=== PATIENT | female | born 1970 | race Caucasian/White ===

== ENCOUNTER 2016-10-26 12:49 | Emergency (ER) | payer OTHER ==
[2016-10-26] MEDS ORDERED: DIPHENHYDRAMINE HCL 25 MG CAPSULE PO ONE (13:32)
[2016-10-26] MEDS ORDERED: METHYLPREDNISOLONE INJ 125 MG/2 ML SDV IM ONE (13:32)
[2016-10-26] MEDS ORDERED: FAMOTIDINE 20 MG TABLET PO ONE (13:32)
--- NOTE | 2016-10-26 13:39 | ER Document Report ---
HPI - HPI Pain Level: 3 Notes: Patient is a 45-year-old female presents the ED complaining of a wasp sting to her right fourth distal digit. Patient states that she has not had any severe allergic reactions to wasp stings but does have a family history of allergies to bee and wasp stings. Patient states that the sting occurred just prior to arrival. Patient did take 25 mg and Benadryl just prior to arrival. She has not noticed any swelling proximally from her finger. She is still eating and drink without any problems. She has not noticed any headache, changes in her vision, dizziness, swelling of the lip/tongue/throat, cough, wheeze, shortness of breath, trouble breathing/trouble swallowing, chest pain, syncope, palpitations, abdominal pain, nausea/vomiting/diarrhea, purulent discharge. Patient denies any smoking or illicit drug use. She does have allergies to macrolides and doxycycline. Patient has past medical history significant for hypertension, hypercholesterolemia, anxiety, diabetes (p.o. meds), chronic back pain, and seasonal allergies. Denies any recent travel, recent illness, or sick contacts. - ROS Notes: REVIEW OF SYSTEMS: CONSTITUTIONAL : Denies fever, chills, or sweats. Denies recent illness. EENT: Denies eye, ear, throat, or mouth pain or symptoms. Denies nasal or sinus congestion or discharge. Denies throat, tongue, or mouth swelling or difficulty swallowing. CARDIOVASCULAR: Denies chest pain. Denies palpitations or racing or irregular heart beat. Denies ankle edema. RESPIRATORY: Denies cough, cold, or chest congestion. Denies shortness of breath, difficulty breathing, or wheezing. GASTROINTESTINAL: Denies abdominal pain or distention. Denies nausea, vomiting , or diarrhea. Denies blood in vomitus, stools, or per rectum. Denies black, tarry stools. Denies constipation. GENITOURINARY: Denies difficulty urinating, painful urination, burning, frequency, blood in urine, or discharge. MUSCULOSKELETAL: see hpi SKIN: see hpi HEMATOLOGIC : Denies easy bruising or bleeding. LYMPHATIC: Denies swollen, enlarged glands. NEUROLOGICAL: Denies confusion or altered mental status. Denies passing out or loss of consciousness. Denies dizziness or lightheadedness. Denies headache. Denies weakness or paralysis or loss of use of either side. Denies problems with gait or speech. Denies sensory loss, numbness, or tingling. ALL OTHER SYSTEMS REVIEWED AND NEGATIVE. Dictation was performed using [employer] voice recognition software - CARDIOVASCULAR Cardiovascular: DENIES: Chest pain - tight since stung - REPRODUCTIVE Reproductive: DENIES: : - DERM Skin Color: Normal Past Medical History - Social History Smoking Status: Never Smoker Chew tobacco use (# tins/day): No Frequency of alcohol use: Occasional Drug Abuse: None Family History: Reviewed & Not Pertinent Patient has suicidal ideation: No Patient has homicidal ideation: No - Past Medical History Cardiac Medical History: Reports: Hx Heart Attack - 2010, Hx Hypercholesterolemia, Hx Hypertension - on meds Pulmonary Medical History: Reports: Hx Asthma - none for 2 mo, Hx Bronchitis - Hx bronchitis x3 times, Hx Pneumonia Neurological Medical History: Reports: Hx Migraine Endocrine Medical History: Reports: Hx Diabetes Mellitus Type 2, Hx Hypothyroidism Renal/ Medical History: Reports: Hx Kidney Stones. Denies: Hx Peritoneal Dialysis GI Medical History: Reports: Hx Gastroesophageal Reflux Disease, Hx Ulcer Musculoskeltal Medical History: Reports Hx Arthritis, Reports Hx Musculoskeletal Trauma Skin Medical History: Reports Hx Eczema Psychiatric Medical History: Reports: Hx Anxiety - panic attacks Past Surgical History: Reports: Hx Appendectomy, Hx Cardiac Catheterization, Hx Hysterectomy, Hx Orthopedic Surgery - right hip with hardware, Hx Rectal Surgery - Hemmorhoids, Hx Tonsillectomy, Hx Tubal Ligation - Immunizations Immunizations up to date: Yes Hx Diphtheria, Pertussis, Tetanus Vaccination: Yes Hx Pneumococcal Vaccination: 04/12/07 Vertical Provider Document - CONSTITUTIONAL Agree With Documented VS: Yes Notes: PHYSICAL EXAMINATION: GENERAL: Well-appearing, well-nourished and in no acute distress. HEAD: Atraumatic, normocephalic. EYES: Pupils equal round and reactive to light, extraocular movements intact, sclera anicteric, conjunctiva are normal. ENT: EAC clear b/l. TM's intact b/l without erythema, fluid, or perforation. Nares patent and without discharge. oropharynx clear without exudates. No tonsilar hypertrophy or erythema. Moist mucous membranes. No sinus tenderness. No angioedema NECK: Normal range of motion, supple without lymphadenopathy. No rigidity LUNGS: Breath sounds clear to auscultation bilaterally and equal. No wheezes rales or rhonchi. HEART: Regular rate and rhythm without murmurs, rubs, gallops. Musculoskeletal: Rt 4th digit: FROM to passive/active. Strength 5+/5. + mild erythema/inflammation. No stinger noted (credit card swiped at sting site). N/ V intact distal. No prox erythema, cellulitis, abscess, d.ischarge, or lymphangitis/prox lymphadenopathy. + mild tenderness at sting site. Extremities: No cyanosis, clubbing, or edema b/l. Peripheral pulses 2+. Capillary refill less than 3 seconds. NEUROLOGICAL: Normal sensory, motor exams PSYCH: Normal mood, normal affect. SKIN: Warm, Dry, normal turgor, no rashes or lesions noted.--See MSK exam as well. - INFECTION CONTROL TRAVEL OUTSIDE OF THE [place] IN LAST 30 DAYS: No - RESPIRATORY O2 Sat by Pulse Oximetry: 97 Course - Re-evaluation Re-evalutation: 10/26/16 14:24 Patient is an afebrile, well-hydrated, 45-year-old female sent to the ED status post wasp sting to the fourth right distal posterior digit. Vitals are stable. PE otherwise unremarkable. Low suspicion for any septic joint, sepsis, fracture, or systemic illness. Patient only took 25 mg of Benadryl just prior to arrival. Another 25 mg Benadryl p.o. given today along with Pepcid 20 mg p.o. and Solu-Medrol 125 mg IM. Pt noted improvement in her symptoms after 1hr observation. Pt states she is ready to go home. Pt to monitor for any acute changes in health and any angioedema, etc. Pt to return if so. Conservative measures otherwise for symptoms. Recheck with your PCM in 2-3 days. Return to ED with any worsening/concerning symptoms otherwise as reviewed in discharge. Patient is in agreement. - Vital Signs Vital signs: Temp Pulse Resp BP Pulse Ox 98.1 F 77 16 111/57 L 97 10/26/16 12:54 10/26/16 12:54 10/26/16 12:54 10/26/16 12:54 10/26/16 12:54 Discharge - Discharge Clinical Impression: Wasp sting Qualifiers: Encounter type: initial encounter Injury intent: accidental or unintentional Qualified Code(s): T63.461A - Toxic effect of venom of wasps, accidental ( unintentional), initial encounter Condition: Stable Disposition: HOME, SELF-CARE Instructions: Insect Sting ([facility]), Swollen Insect Bite or Sting ([facility]), Use of Diphenhydramine, Ice & Elevation ([facility]) Additional Instructions: Rest, Ice, Compression, Elevation Take benadryl/pepcid as directed May use topical benadryl/cortisone cream as well as needed Tylenol/ibuprofen as needed Light stretches daily Strength exercises as able F/u with your PCP in 2-3 days for a recheck Consider consult(s) with Orthopedics for ongoing/worsening symptoms Return to the ED with any worsening symptoms and/or development of fever, swelling of face/lips/tongue/throat, trouble swallowing, headache, chest pain, palpitations, syncope, shortness of breath, trouble breathing, abdominal pain, n /v/d, muscle weakness/paralysis, numbness/tingling, or other worsening symptoms that are concerning to you. Referrals: WALI SQUIRES DO [Primary Care Provider] - Follow up in 3-5 days
[2016-10-26 15:03] VITALS: BP 141/82
== END 2016-10-26 14:50 | disposition home or self-care (01) ==
LOC: ER 12:49
DX: T63.461A Toxic effect of venom of wasps, accidental (unintentional), initial encounter (principal); I10 Essential (primary) hypertension; E11.9 Type 2 diabetes mellitus without complications; E03.9 Hypothyroidism, unspecified; K21.9 Gastro-esophageal reflux disease without esophagitis; E78.00 Pure hypercholesterolemia, unspecified; Z87.442 Personal history of urinary calculi; I25.2 Old myocardial infarction; Z90.710 Acquired absence of both cervix and uterus; Z84.89 Family history of other specified conditions
CPT/HCPCS: 99281; 96372; J2930

== ENCOUNTER → 2016-11-01 | Outpatient (CLI) | payer OTHER ==
--- NOTE | 2016-11-01 09:04 | RADIOLOGY REPORT (SQ) ---
EXAM DESCRIPTION: CT ABD/PELVIS COMBO COMPLETED DATE/TIME: 11/01/2016 8:44 am REASON FOR STUDY: GROSS HEMATURIA R31.0 GROSS HEMATURIA COMPARISON: None. TECHNIQUE: CT scan of the abdomen and pelvis performed with and without intravenous contrast, and wi thout oral contrast. Contrasted imaging performed helical scanning technique and dynamic intravenous contrast injection. Images reviewed with lung, soft tissue, and bone windows. Reconstructed coronal a nd sagittal MPR images reviewed. Delayed images for evaluation of the urinary system also acquired. A ll images stored on PACS. All CT scanners at this facility use dose modulation, iterative reconstruction, and/or weight based d osing when appropriate to reduce radiation dose to as low as reasonably achievable (ALARA). [facility]: Dose Right [facility]: CareDose [facility]: Dose Right [facility]: Teradose 4D [facility]: Houzz CONTRAST TYPE AND DOSE: contrast/concentration: Isovue 370.00 mg/ml; Total Contrast Delivered: 76.0 ml; Total Saline Delivered: 67.0 ml RENAL FUNCTION: Creatinine 0.6 RADIATION DOSE: Up-to-date CT equipment and radiation dose reduction techniques were employed. CTDIv ol: 9.0 - 9.2 mGy. DLP: 1417 mGy-cm. . LIMITATIONS: None. FINDINGS: NON-CONTRASTED IMAGING: There are solitary tiny bilateral renal calculi. No ureteric calc tunde are identified. POST-CONTRASTED IMAGING: LOWER CHEST: No significant findings. No nodules or infiltrates. LIVER: Normal size. There is mild fatty infiltration of the liver. Couple small hepatic cysts are i dentified in the medial segment of the left lobe of the liver. No dilated ducts. SPLEEN: Normal size. No focal lesions. PANCREAS: No masses. No significant calcifications. No adjacent inflammation or peripancreatic fluid collections. Pancreatic duct not dilated. GALLBLADDER: No identified stones by CT criteria. No inflammatory changes to suggest cholecystitis. ADRENAL GLANDS: No significant masses or asymmetry. RIGHT KIDNEY AND URETER: No solid masses. No significant calcifications. No hydronephrosis or hyd roureter. LEFT KIDNEY AND URETER: No solid masses. No significant calcifications. No hydronephrosis or hydr oureter. AORTA AND VESSELS: No aneurysm. No dissection. Renal arteries, SMA, celiac without stenosis. RETROPERITONEUM: No retroperitoneal adenopathy, hemorrhage or masses. BOWEL AND PERITONEAL CAVITY: No masses or inflammatory changes. No free fluid or peritoneal masses. APPENDIX: Status post appendectomy PELVIS: No mass. No free fluid. The bladder is not well evaluated due to its non distended state. No obvious masses are identified. ABDOMINAL WALL: No masses. No hernias. BONES: No significant or acute findings. OTHER: No other significant finding. IMPRESSION: Tiny solitary bilateral renal calculi are identified. No renal mass lesions are identif ied. The bladder is not well evaluated due to its non distended state. Other findings as noted abov e TECHNICAL DOCUMENTATION: JOB ID: [id number] Quality ID # [id number]: Final reports with documentation of one or more dose reduction techniques (e.g., Au tomated exposure control, adjustment of the mA and/or kV according to patient size, use of iterative reconstruction technique) 2010 [employer]- All Rights Reserved
== END ==
LOC: RAD 07:49
PROVIDERS: ATTEND Urology
DX: R31.0 Gross hematuria (principal)
CPT/HCPCS: 74178; 82565

== ENCOUNTER 2017-01-19 16:20 | Observation (INO) | payer OTHER ==
[2017-01-19] MEDS ORDERED: ASPIRIN 81 MG TABLET, CHEWABLE PO ONE (16:22)
[2017-01-19 16:54] LABS: ABSOLUTE EOSINOPHILS # (AUTO) 0.1 10^3/uL (0.0-0.6); ABSOLUTE LYMPHOCYTES (AUTO) 2.6 10^3/uL (0.5-4.7); ABSOLUTE MONOCYTES (AUTO) 0.8 10^3/uL (0.1-1.4); ABSOLUTE NEUT (AUTO) 5.7 10^3/uL (1.7-8.2); BASOPHILS % (AUTO) 0.5 % (0-2); EOSINOPHILS % (AUTO) 1.5 % (0-6); HEMOGLOBIN 14.3 g/dL (12.0-15.5); HGB HCT DIFFERENCE 0.9; MEAN CORPUSCULAR HEMOGLOBIN 29.7 pg (27.0-33.4); MEAN CORPUSCULAR HGB CONC 34.2 g/dL (32.0-36.0); MEAN CORPUSCULAR VOLUME 87 fl (80-97); MONOCYTES % (AUTO) 8.3 % (3-13); RED BLOOD COUNT 4.83 10^6/uL (3.72-5.28); RED CELL DISTRIBUTION WIDTH 13.4 % (11.5-14.0); SEGMENTED NEUTROPHILS % (AUTO) 61.7 % (42-78); WHITE BLOOD COUNT 9.3 10^3/uL (4.0-10.5)
--- NOTE | 2017-01-19 16:58 | RADIOLOGY REPORT (SQ) ---
EXAM DESCRIPTION: CHEST SINGLE VIEW COMPLETED DATE/TIME: 01/19/2017 4:46 pm REASON FOR STUDY: bed 4 cp COMPARISON: 08/24/2015 EXAM PARAMETERS: NUMBER OF VIEWS: One view. TECHNIQUE: Single frontal radiographic view of the chest acquired. RADIATION DOSE: NA LIMITATIONS: None. FINDINGS: LUNGS AND PLEURA: No opacities, masses or pneumothorax. No pleural effusion. MEDIASTINUM AND HILAR STRUCTURES: No masses. Contour normal. HEART AND VASCULAR STRUCTURES: Mild cardiomegaly. Normal vasculature. BONES: No acute findings. HARDWARE: None in the chest. OTHER: No other significant finding. IMPRESSION: Mild cardiomegaly without evidence of failure. TECHNICAL DOCUMENTATION: JOB ID: [id number]
[2017-01-19 17:10] LABS: ALANINE AMINOTRANSFERASE 30 U/L (9-52); ALBUMIN 4.3 g/dL (3.5-5.0); ALKALINE PHOSPHATASE 98 U/L (38-126); ANION GAP 11 (5-19); ASPARTATE AMINO TRANSFERASE 18 U/L (14-36); BILIRUBIN,DIRECT 0.3 mg/dL (0.0-0.4); BILIRUBIN,TOTAL 0.6 mg/dL (0.2-1.3); BLOOD UREA NITROGEN 18 mg/dL (7-20); CALCIUM 9.9 mg/dL (8.4-10.2); CARBON DIOXIDE 25 mmol/L (22-30); CHLORIDE 111 mmol/L (98-107); CREATINE KINASE 71 U/L (30-135); CREATININE RESULT 0.53 mg/dL (0.52-1.25); GLUCOSE 101 mg/dL (75-110); POTASSIUM 4.4 mmol/L (3.6-5.0); SODIUM 146.8 mmol/L (137-145); TOTAL PROTEIN 6.5 g/dL (6.3-8.2)
[2017-01-19 17:18] LABS: CREATINE KINASE MB 0.94 ng/mL (<4.55); TROPONIN I < 0.012 ng/mL
--- NOTE | 2017-01-19 18:05 | ER Document Report ---
ED Cardiac - General Chief Complaint: Chest Pain Stated Complaint: CHEST PAIN Time Seen by Provider: 01/19/17 16:42 Notes: Patient was at work when she got in an argument with some of her coworkers. States that she was yelled out. Has a history of anxiety as well as hypertension in heart problems. She began to notice that her face turned red and they begin to make fun of her. She was told to leave. She walked across the street [place] and it was extremely high. She is told the relocation counselor that she was having chest pain. They decided to transport her. Aspirin was given. Nitroglycerin was given. Patient states she had chest pain at that time but is now resolved. States that she knows this is from her anxiety and she has had this happen before. Last cardiac workup was done approximately 7 years ago. TRAVEL OUTSIDE OF THE [place] IN LAST 30 DAYS: No - HPI Patient complains to provider of: Chest pain - Related Data Allergies/Adverse Reactions: doxycycline [Doxycycline] Allergy (Severe, Verified 01/19/17 16:32) Anaphylaxis erythromycin base [Erythromycin Base] Allergy (Severe, Verified 01/19/17 16:32) Anaphylaxis latex [Latex] Allergy (Severe, Verified 01/19/17 16:32) Rash butorphanol tartrate [From Stadol] Allergy (Intermediate, Verified 01/19/17 16: 32) Difficulty breathing mycins Allergy (Severe, Uncoded 01/19/17 16:32) Anaphylaxis Past Medical History - Social History Smoking Status: Current Every Day Smoker Chew tobacco use (# tins/day): No Frequency of alcohol use: Occasional Drug Abuse: None Family History: Reviewed & Not Pertinent Patient has suicidal ideation: No Patient has homicidal ideation: No - Past Medical History Cardiac Medical History: Reports: Hx Heart Attack - 2010, Hx Hypercholesterolemia, Hx Hypertension - on meds Pulmonary Medical History: Reports: Hx Asthma - none for 2 mo, Hx Bronchitis - Hx bronchitis x3 times, Hx Pneumonia Neurological Medical History: Reports: Hx Migraine Endocrine Medical History: Reports: Hx Diabetes Mellitus Type 2, Hx Hypothyroidism Renal/ Medical History: Reports: Hx Kidney Stones. Denies: Hx Peritoneal Dialysis GI Medical History: Reports: Hx Gastroesophageal Reflux Disease, Hx Ulcer Musculoskeltal Medical History: Reports Hx Arthritis, Reports Hx Musculoskeletal Trauma Skin Medical History: Reports Hx Eczema Psychiatric Medical History: Reports: Hx Anxiety - panic attacks Past Surgical History: Reports: Hx Appendectomy, Hx Cardiac Catheterization, Hx Hysterectomy, Hx Orthopedic Surgery - right hip with hardware, Hx Rectal Surgery - Hemmorhoids, Hx Tonsillectomy, Hx Tubal Ligation - Immunizations Immunizations up to date: Yes Hx Diphtheria, Pertussis, Tetanus Vaccination: Yes Hx Pneumococcal Vaccination: 04/12/07 Review of Systems - Review of Systems Constitutional: No symptoms reported EENT: No symptoms reported Cardiovascular: No symptoms reported, Chest pain, Palpitations Respiratory: No symptoms reported Gastrointestinal: No symptoms reported Genitourinary: No symptoms reported Female Genitourinary: No symptoms reported Musculoskeletal: No symptoms reported Skin: No symptoms reported Hematologic/Lymphatic: No symptoms reported Neurological/Psychological: No symptoms reported, Anxiety Physical Exam - Vital signs Vitals: Temp 97.4 F 01/19/17 16:29 Interpretation: Normal - General General appearance: Appears well, Alert - HEENT Head: Normocephalic, Atraumatic Eyes: Normal Pupils: PERRL - Respiratory Respiratory status: No respiratory distress Chest status: Nontender Breath sounds: Normal Chest palpation: Normal - Cardiovascular Rhythm: Regular Heart sounds: Normal auscultation Murmur: No - Abdominal Inspection: Normal Distension: No distension Bowel sounds: Normal Tenderness: Nontender Organomegaly: No organomegaly - Back Back: Normal, Nontender - Extremities General upper extremity: Normal inspection, Nontender, Normal color, Normal ROM , Normal temperature General lower extremity: Normal inspection, Nontender, Normal color, Normal ROM , Normal temperature, Normal weight bearing. No: Blossom's sign - Neurological Neuro grossly intact: Yes Cognition: Normal Orientation: AAOx4 Velasquez Coma Scale Eye Opening: Spontaneous Velasquez Coma Scale Verbal: Oriented Leroy Coma Scale Motor: Obeys Commands Velasquez Coma Scale Total: 15 Speech: Normal Motor strength normal: LUE, RUE, LLE, RLE Sensory: Normal - Psychological Associated symptoms: Normal affect, Normal mood - Skin Skin Temperature: Warm Skin Moisture: Dry Skin Color: Normal Course - Re-evaluation Re-evalutation: 01/19/17 17:57 Appearing. No acute distress. I am concerned the patient is hypertensive diabetic with a history of heart problems. Will likely need to be admitted for stress test and repeat troponin. Will discuss with patient and if she is good with this plan will admit to the hospital. 01/19/17 18:05 We will admit to the hospital at this time. Consulted with Dr. Liang who has agreed to admit - Vital Signs Vital signs: Temp Pulse Resp BP Pulse Ox 97.4 F 99 01/19/17 16:29 01/19/17 16:34 - Laboratory Result Diagrams: 01/19/17 16:30 01/19/17 16:30 Laboratory results interpreted by me: 01/19/17 16:30 Sodium 146.8 H Chloride 111 H - Diagnostic Test Radiology reviewed: Reports reviewed Radiology results interpreted by me: 01/19/17 18:04 Chest x-ray unremarkable - EKG Interpretation by Me EKG shows normal: Sinus rhythm Rate: Normal Rhythm: NSR - Patient has T-wave inversions across precordial leads concerning for anterior infarct age indeterminate. Discharge - Discharge Clinical Impression: Acute chest pain Condition: Good Disposition: ADMITTED INPATIENT Admitting Provider: Hospitalist Referrals: SIERRA ALBARRAN MD [Primary Care Provider] - Follow up as needed
[2017-01-19] MEDS ORDERED: ENOXAPARIN SODIUM INJ 80 MG/0.8 ML DISP.SYRIN SUBCUT ONE (18:08)
[2017-01-19] MEDS ORDERED: ACETAMINOPHEN 325 MG TABLET PO PRN (18:34)
[2017-01-19] MEDS ORDERED: ONDANSETRON HCL INJ/PF 4 MG/2 ML SDV IV PRN (18:41)
[2017-01-19] MEDS ORDERED: INSULIN REG, HUMAN 100 UNIT/ML 3 ML VIAL (PYX) SUBCUT PRN (18:45)
[2017-01-19] MEDS ORDERED: GLUCAGON,HUMAN RECOMB 1 MG INJ IM PRN (18:45)
[2017-01-19] MEDS ORDERED: DEXTROSE 50%-WATER 25 GM/50 ML DISP.SYRIN IV PRN ×2 (18:45)
[2017-01-19] MEDS ORDERED: DEXTROSE 40% GEL 15 GM TUBE PO PRN ×2 (18:45)
--- NOTE | 2017-01-19 18:57 | PDOC H&P ---
History of Present Illness Admission Date/PCP: SIERRA ALBARRAN MD Patient complains of: chest pain History of Present Illness: OTILIO SELLERS is a 46 year old female, with hypertension and diabetes mellitus prior heart attack in the past since of the hospital with chest pain while having an argument with her employer. The patient was cooking and cutting ingredients when arguments started. Patient started crying and hyperventilating and eventually of a localized pain in the anterior chest wall mainly in the sternum. No radiation. No definite shortness of breath or diaphoresis. No nausea or vomiting. No chills fever or coughing. Patient went to the emergency room for evaluation. Because of the patient's history the patient was referred for observation and possible stress test in the morning. Past Medical History Past Medical History: Medication reconciliation pending verification from the patient's pharmacist. Cardiac Medical History: Reports: Myocardial Infarction - 2010, Hyperlipidema, Hypertension - on meds Pulmonary Medical History: Reports: Asthma - none for 2 mo, Bronchitis - Hx bronchitis x3 times, Pneumonia Neurological Medical History: Reports: Migraine Endocrine Medical History: Reports: Diabetes Mellitus Type 2, Hypothyroidism GI Medical History: Reports: Gastroesophageal Reflux Disease Musculoskeltal Medical History: Reports: Arthritis Skin Medical History: Reports: Eczema Hematology: Reports: Anemia - hx of Past Surgical History Past Surgical History: Reports: Appendectomy, Cardiac Catheterization, Hysterectomy, Orthopedic Surgery - right hip with hardware, Tonsillectomy, Tubal Ligation Social History Information Source: Patient Smoking Status: Never Smoker Frequency of Alcohol Use: Rare Hx Recreational Drug Use: No Drugs: None Hx Prescription Drug Abuse: No Family History Family History: None Parental Family History Reviewed: Yes Children Family History Reviewed: Yes Sibling(s) Family History Reviewed.: Yes Medication/Allergy Home Medications: Melatonin/Pyridoxine [Melatonin 3 mg Tablet] 1 each PO QHS 08/08/12 Losartan Potassium [Cozaar] 1 tab PO QHS 07/18/14 Metformin HCl [Glucophage] 1 tab PO BID 07/18/14 Alprazolam [Xanax 0.25 mg Tablet] 0.25 mg PO PRN PRN 09/07/14 Citalopram Hydrobromide [Celexa 10 mg Tablet] 20 mg PO QHS 09/07/14 Methocarbamol 750 mg PO Q8H PRN 09/07/14 Albuterol 2 puff IH Q4H PRN 10/06/14 Hydrocodone/Acetaminophen [Rowan 5-325 mg Tablet] 2 tab PO Q4HP PRN #30 tablet 10/08/14 Ibuprofen [Motrin 800 mg Tablet] 800 mg PO Q8H PRN #30 tab 10/08/14 Hydrocodone/Acetaminophen [Rowan 5-325 mg Tablet] 1 tab PO Q4 PRN #15 tablet 08/27 Naproxen Sodium 220 mg PO BID PRN #20 capsule 02/17/15 Ondansetron HCl [Zofran 8 mg Tablet] 8 mg PO Q8HP PRN #14 tablet 02/17/15 Tamsulosin HCl [Flomax 0.4 mg Cap.sr] 0.4 mg PO DAILY #7 cap.sr.24h 02/17/15 Ciprofloxacin HCl [Cipro] 500 mg PO BID #14 tablet 02/25/15 Oxycodone HCl/Acetaminophen [Percocet 5-325 mg Tablet] 1 - 2 tab PO Q4H PRN #40 tablet 02/25/15 Tamsulosin HCl [Flomax 0.4 mg Cap.sr] 0.4 mg PO DAILY #7 cap.sr.24h 02/25/15 Polyethylene Glycol 3350 [Miralax Powder 17 gm/Packet] 1 packet PO DAILY PRN #1 pkg 06/06/15 Ondansetron [Zofran Odt 4 mg Tablet] 1 - 2 tab PO Q4H PRN #15 tab.rapdis Sumatriptan Succinate [Imitrex 50 mg Tablet] 50 mg PO PRN PRN #14 tab 08/24/15 Cyclobenzaprine HCl [Flexeril 10 mg Tablet] 10 mg PO TIDP PRN #15 tab 09/24/15 Oxycodone HCl/Acetaminophen [Percocet 5-325 mg Tablet] 1 - 2 tab PO Q4H PRN #15 tablet 09/24/15 Allergies/Adverse Reactions: doxycycline [Doxycycline] Allergy (Severe, Verified 01/19/17 16:32) Anaphylaxis erythromycin base [Erythromycin Base] Allergy (Severe, Verified 01/19/17 16:32) Anaphylaxis latex [Latex] Allergy (Severe, Verified 01/19/17 16:32) Rash butorphanol tartrate [From Stadol] Allergy (Intermediate, Verified 01/19/17 16: 32) Difficulty breathing mycins Allergy (Severe, Uncoded 01/19/17 16:32) Anaphylaxis Review of Systems Constitutional: ABSENT: chills, fever(s), headache(s), weight gain, weight loss Eyes: ABSENT: visual disturbances Ears: ABSENT: hearing changes Nose, Mouth, and Throat: ABSENT: mouth pain, sore throat Cardiovascular: PRESENT: chest pain, palpitations. ABSENT: dyspnea on exertion , edema, orthropnea Respiratory: ABSENT: cough, dyspnea, hemoptysis, sputum Gastrointestinal: ABSENT: abdominal pain, bloating, constipation, diarrhea, hematemesis, hematochezia, melena, nausea, vomiting Genitourinary: ABSENT: dysuria, hematuria Musculoskeletal: ABSENT: joint swelling Integumentary: ABSENT: rash, wounds Neurological: ABSENT: abnormal gait, abnormal speech, confusion, dizziness, focal weakness, syncope Psychiatric: ABSENT: anxiety, depression, homidical ideation, suicidal ideation Endocrine: ABSENT: cold intolerance, heat intolerance, polydipsia, polyuria Hematologic/Lymphatic: ABSENT: easy bleeding, easy bruising Physical Exam Vital Signs: Temp Pulse Resp BP Pulse Ox 97.4 F 22 H 161/104 H 99 01/19/17 16:29 01/19/17 18:19 01/19/17 18:19 01/19/17 18:19 Intake & Output 01/18/17 01/19/17 01/20/17 06:59 06:59 06:59 Weight 70.307 kg General appearance: PRESENT: no acute distress, morbidly obese Head exam: PRESENT: atraumatic, normocephalic Eye exam: PRESENT: conjunctiva pink, EOMI, PERRLA. ABSENT: scleral icterus Ear exam: PRESENT: normal external ear exam Mouth exam: PRESENT: moist, neck supple, tongue midline Throat exam: ABSENT: post pharyngeal erythema, tonsillar erythema Neck exam: ABSENT: carotid bruit, JVD, lymphadenopathy, thyromegaly Respiratory exam: PRESENT: clear to auscultation ganesh, unlabored. ABSENT: rales , rhonchi, wheezes Cardiovascular exam: PRESENT: RRR. ABSENT: diastolic murmur, rubs, systolic murmur Pulses: PRESENT: normal dorsalis pedis pul Vascular exam: PRESENT: normal capillary refill GI/Abdominal exam: PRESENT: normal bowel sounds, soft. ABSENT: distended, guarding, mass, organolmegaly, rebound, tenderness Rectal exam: PRESENT: deferred Extremities exam: PRESENT: full ROM. ABSENT: calf tenderness, clubbing, pedal edema Neurological exam: PRESENT: alert, awake, oriented to person, oriented to place , oriented to time, oriented to situation Psychiatric exam: PRESENT: appropriate affect, normal mood. ABSENT: homicidal ideation, suicidal ideation Skin exam: PRESENT: dry, intact, warm. ABSENT: cyanosis, rash Results Laboratory Results: 01/19/17 16:30 01/19/17 16:30 01/19/17 01/19/17 16:30 16:30 WBC 9.3 RBC 4.83 Hgb 14.3 Hct 42.0 MCV 87 MCH 29.7 MCHC 34.2 RDW 13.4 Plt Count 246 Seg Neutrophils % 61.7 Lymphocytes % 28.0 Monocytes % 8.3 Eosinophils % 1.5 Basophils % 0.5 Absolute Neutrophils 5.7 Absolute Lymphocytes 2.6 Absolute Monocytes 0.8 Absolute Eosinophils 0.1 Absolute Basophils 0.0 Sodium 146.8 H Potassium 4.4 Chloride 111 H Carbon Dioxide 25 Anion Gap 11 BUN 18 Creatinine 0.53 Est GFR ( Amer) > 60 Est GFR (Non-Af Amer) > 60 Glucose 101 Calcium 9.9 Total Bilirubin 0.6 AST 18 ALT 30 Alkaline Phosphatase 98 Total Protein 6.5 Albumin 4.3 01/19/17 01/19/17 16:30 16:30 Creatine Kinase 71 CK-MB (CK-2) 0.94 Troponin I < 0.012 Impressions: Chest X-Ray 01/19/17 16:22 IMPRESSION: Mild cardiomegaly without evidence of failure. Assessment & Plan - Diagnosis (1) Acute chest pain Is this a current diagnosis for this admission?: Yes (2) Essential hypertension Is this a current diagnosis for this admission?: Yes (3) Diabetes mellitus type 2 in obese Is this a current diagnosis for this admission?: Yes (4) Coronary artery disease Qualifiers: Coronary Disease-Associated Artery/Lesion type: [place] artery [place] vs. transplanted heart: [place] heart Associated angina: angina presence unspecified Qualified Code(s): I25.10 - Atherosclerotic heart disease of [place] coronary artery without angina pectoris Is this a current diagnosis for this admission?: Yes (5) Hypercholesterolemia Is this a current diagnosis for this admission?: Yes (6) Asthma Qualifiers: Asthma severity: unspecified severity Asthma persistence: unspecified Asthma complication type: unspecified Qualified Code(s): J45.909 - Unspecified asthma, uncomplicated Is this a current diagnosis for this admission?: Yes - Time Time Spent: 50 to 70 Minutes - Plan Summary Plan Summary: The patient will be placed on observation. Serial cardiac enzymes will be obtained if negative we will proceed with a stress test. In the meantime I will put the patient on aspirin and supplemental oxygen. As needed nitroglycerin will be given. DVT prophylaxis with Lovenox will be placed. She will be on sliding scale insulin. Further testing depends on initial evaluations outlined above.
[2017-01-19] MEDS ORDERED: ALBUTEROL SULFATE HFA (90 MCG/PUFF) 200 PUFF/8.5 GM MDI IH PRN (19:00)
[2017-01-19 20:50] LABS: CREATINE KINASE MB 0.97 ng/mL (<4.55)
[2017-01-19 20:51] LABS: TROPONIN I < 0.012 ng/mL
[2017-01-19] MEDS ORDERED: CITALOPRAM HYDROBROMIDE 20 MG TABLET PO SCH (22:00)
[2017-01-19] MEDS ORDERED: LOSARTAN POTASSIUM 50 MG TABLET PO SCH (22:00)
[2017-01-19] MEDS ORDERED: CITALOPRAM HYDROBROMIDE 20 MG PO SCH (22:00)
[2017-01-19] MEDS ORDERED: INFLUENZA ADLT QUAD (36MOS+) 2017-18 VAC 0.5 ML SYR IM PRN (22:45)
[2017-01-20 02:52] LABS: TROPONIN I < 0.012 ng/mL
[2017-01-20] MEDS ORDERED: LANSOPRAZOLE 30 MG TAB.RAP.DR PO SCH (06:00)
[2017-01-20] MEDS ORDERED: ENOXAPARIN SODIUM INJ 40 MG/0.4 ML DISP.SYRIN SUBCUT SCH (10:00)
[2017-01-20] MEDS ORDERED: ASPIRIN 81 MG TABLET, CHEWABLE PO SCH (10:00)
[2017-01-20] MEDS ORDERED: DOCUSATE SODIUM 100 MG CAPSULE PO SCH (10:00)
--- NOTE | 2017-01-20 12:30 | DRAGON STRESS TEST REPORT ---
INTRAVENOUS LEXISCAN CARDIOLITE STRESS TEST USING SINGLE PHOTON EMMISION COMPUTERIZED TOMOGRAPHIC. DATE OF PROCEDURE: January 20, 2017 INDICATION : Chest pain CARDIAC RISK FACTORS: Diabetes, hypertension RESTING EKG: Sinus rhythm, abnormal Q waves inferior lead suggestive of prior inferior myocardial infarction. No acute ST segment changes noted STRESS EKG: No significant changes noted with LexiScan bolus REASON FOR TERMINATION: Protocol. PROCEDURE REPORT: Baseline heart rate 71 beats per minute with blood pressure of 122/92. Patient had no significant complaints. Heart rate at 2 minutes post bolus 110 with a blood pressure of 153/90. 3 minutes post bolus heart rate 93 with blood pressure of 148/95. No significant EKG changes were noted. Patient had no significant complaints during the procedure or postprocedure. Patient injected with Aminophyllin 75 mg at 3 minutes or later after Lexiscan bolus. CONCLUSIONS: Normal EKG and hemodynamic response to IV LexiScan. NUCLEAR DATA: At rest the patient was given 10.98 millicuries of technetium 99 sestamibi injected intravenously. As per protocol rest gated SPECT images were obtained. Subsequently the patient was given intravenous LexiScan at a dose of 0.4 mg in 5 mL intravenously, followed by flush with normal saline. Subsequently the stress dose of 30.8 millicuries of technetium 99 sestamibi was injected intravenously. As per protocol stress gated images were obtained. NUCLEAR INTERPRETATION: Both raw and processed data were used for interpretation. Visual, qualitative, computer-generated quantitative data was used. There was good myocardial uptake of technetium compound. Motion artifact and soft tissue attenuations were noted. Increased visceral uptake was noted. No definitive areas of transient perfusion defect noted. An area of severe fixed defect noted involving the left ventricular apex and distal inferior wall indicative of prior myocardial infarction and scar. EKG gated imaging showed LV EF at 41 %, rest and stress gated EF similar visually, with apical and distal inferior wall hypokinesia. T. I D. ratio was 0.86. Lung heart ratio noted to be within normal limits 0.36. No significant extracardiac and abnormal radiotracer activities were noted. RV free wall uptake was noted to be increased.. IMPRESSION: Also refer to comments under nuclear interpretation. Also test results needs to be interpreted in the context of pretest probability. 1. There is no definitive scintigraphic evidence of LexiScan induced myocardial ischemia. 2. An area of severe fixed perfusion defect noted involving the left ventricular apex and distal inferior wall indicative of prior myocardial infarction and scar. 3. EKG gated imaging shows left ventricular ejection fraction of approximately 41 % with apical and distal inferior wall hypokinesia. 4. Clinical correlation requested as occasionally worse disease or balanced ischemia could be missed. In approximately 10% of the cases Lexiscan may not cause adequate vasodilatory stress. RECOMMENDATIONS: Aggressive risk factor modification, medical therapy. Clinical correlation with echocardiogram derived ejection fraction. Inability to exercise by itself can lead to increased cardiovascular event risks. Consider cardiology consultation and or follow-up if clinically indicated. I AM AVAILABLE FOR CARDIOLOGY CONSULTATION AND FOLLOWUP IF REQUESTED BY PMD Varghese Khalil M.D., MOUNIKA Director Financial Planning service transformer repair supervisor, Board certified in cardiovascular diseases, Nuclear cardiology, Echocardiography Cardiac CT and cardiac MRI Ph. [phone] [facility]
[2017-01-20] MEDS ORDERED: AMINOPHYLLINE INJ/PF 250 MG/10 ML SDV IV ONE (14:31)
[2017-01-20] MEDS ORDERED: REGADENOSON INJ 0.4 MG/5 ML DISP.SYRIN IV ONE (14:31)
--- NOTE | 2017-01-20 14:34 | PDOC DISCHARGE SUMMARY ---
General - Admit/Disc Date/PCP Admission Date/Primary Care Provider: 01/19/17 18:34 SIERRA ALBARRAN MD Discharge Date: 01/20/17 - Discharge Diagnosis (1) Acute chest pain Is this a current diagnosis for this admission?: Yes (2) Essential hypertension Is this a current diagnosis for this admission?: Yes (3) Diabetes mellitus type 2 in obese Is this a current diagnosis for this admission?: Yes (4) Coronary artery disease Is this a current diagnosis for this admission?: Yes (5) Hypercholesterolemia Is this a current diagnosis for this admission?: Yes (6) Asthma Is this a current diagnosis for this admission?: Yes - Additional Information Discharge Diet: Cardiac - Low-fat low-salt, Diabetic - No concentrated sweets Discharge Activity: Activity As Tolerated, Balance Activity w/Rest Home Medications: Melatonin/Pyridoxine [Melatonin 3 mg Tablet] 5 mg PO QHS 08/08/12 Metformin HCl [Glucophage] 1,000 mg PO QHS 07/18/14 Citalopram Hydrobromide [Celexa 10 mg Tablet] 20 mg PO QHS 09/07/14 Methocarbamol 1,500 mg PO Q8H PRN 09/07/14 Albuterol 2 puff IH Q4H PRN 10/06/14 Oxycodone HCl/Acetaminophen [Percocet 5-325 mg Tablet] 1 - 2 tab PO Q4H PRN #15 tablet 09/24/15 Aspirin [Aspirin 81 mg Chewable Tablet] 81 mg PO DAILY 01/19/17 Multivitamin [Multivitamins] 1 each PO DAILY 01/19/17 Losartan Potassium [Cozaar] 1 tab PO QHS #30 tablet 01/20/17 Metoprolol Tartrate [Lopressor 25 mg Tablet] 25 mg PO Q12 #60 tab 01/20/17 Additional Information: Return to the emergency room if symptoms recur. History of Present Illness Patient complains of: Chest pain History of Present Illness: OTILIO SELLERS is a 46 year old female, with hypertension and diabetes mellitus prior heart attack in the past since of the hospital with chest pain while having an argument with her employer. The patient was cooking and cutting ingredients when arguments started. Patient started crying and hyperventilating and eventually of a localized pain in the anterior chest wall mainly in the sternum. No radiation. No definite shortness of breath or diaphoresis. No nausea or vomiting. No chills fever or coughing. Patient went to the emergency room for evaluation. Because of the patient's history the patient was referred for observation and possible stress test in the morning. Hospital Course Hospital Course: The patient was admitted to observation. Serial cardiac enzymes were obtained and they were negative for myocardial infarction. Patient was placed on aspirin and supplemental oxygen. Patient blood pressure noted to be elevated. Stress test was eventually performed showing no reversible ischemia but with fixed defect. Patient was started on beta-slick with metoprolol and advised to continue aspirin and Cozaar. Patient advised to see cad engineer on a routine basis as well. The patient's chest pain resolved. Rest of the hospital stays unremarkable. Physical Exam Vital Signs: Temp Pulse Resp BP Pulse Ox 97.8 F 72 15 139/82 H 96 01/20/17 11:29 01/20/17 11:29 01/20/17 11:29 01/20/17 11:29 01/20/17 11:29 Intake & Output 01/19/17 01/20/17 01/21/17 06:59 06:59 06:59 Intake Total 405 Balance 405 Weight 70.3 kg General appearance: PRESENT: no acute distress, cooperative Head exam: PRESENT: normocephalic Eye exam: PRESENT: EOMI Mouth exam: PRESENT: moist, neck supple Neck exam: ABSENT: JVD Respiratory exam: PRESENT: clear to auscultation ganesh. ABSENT: rhonchi, wheezes Cardiovascular exam: PRESENT: RRR. ABSENT: gallop GI/Abdominal exam: PRESENT: soft. ABSENT: distended, tenderness Extremities exam: ABSENT: pedal edema Neurological exam: PRESENT: alert, awake, oriented to situation Skin exam: PRESENT: dry, warm. ABSENT: cyanosis Results Laboratory Results: 01/19/17 01/19/17 01/20/17 20:08 20:08 02:16 Creatine Kinase 55 63 CK-MB (CK-2) 0.97 Troponin I < 0.012 01/20/17 02:16 Creatine Kinase CK-MB (CK-2) 0.80 Troponin I < 0.012 Impressions: Chest X-Ray 01/19/17 16:22 IMPRESSION: Mild cardiomegaly without evidence of failure. Qualifiers PATEINT BEING DISCHARGED WITH ANY OF THE FOLLOWING DIAGNOSIS?: No Plan Discharge Plan: Follow-up with primary care physician in 1 week. Follow-up with cardiology Dr. Khalil in 1-2 weeks. Time Spent: Less than 30 Minutes
[2017-01-20 15:11] VITALS: BP 156/60
--- NOTE | 2017-01-20 16:55 | EKG REPORT ---
SEVERITY:- ABNORMAL ECG - SINUS RHYTHM INFERIOR INFARCT, AGE INDETERMINATE CONSIDER ANTERIOR INFARCT : Confirmed by: Alda Kovacs MD 20-Jan-2017 16:54:44
== END 2017-01-20 16:17 | disposition home or self-care (01) ==
LOC: ER 16:20 → EH 18:34 → UNDOADMOB 18:52 → 5 20:50
PROC: 3E0234Z Introduction of Serum, Toxoid and Vaccine into Muscle, Percutaneous Approach (ICD-10-PCS; principal; 2017-01-20)
DX: R07.89 Other chest pain (principal); I10 Essential (primary) hypertension; E11.9 Type 2 diabetes mellitus without complications; E66.9 Obesity, unspecified; I25.10 Atherosclerotic heart disease of native coronary artery without angina pectoris; E78.00 Pure hypercholesterolemia, unspecified; J45.909 Unspecified asthma, uncomplicated; R06.4 Hyperventilation; R00.2 Palpitations; I25.2 Old myocardial infarction; F17.200 Nicotine dependence, unspecified, uncomplicated; F41.9 Anxiety disorder, unspecified; Z79.84 Long term (current) use of oral hypoglycemic drugs; Z79.82 Long term (current) use of aspirin; Z79.899 Other long term (current) drug therapy; Z87.11 Personal history of peptic ulcer disease; Z90.49 Acquired absence of other specified parts of digestive tract; Z68.27 Body mass index [BMI] 27.0-27.9, adult; Z23 Encounter for immunization
CPT/HCPCS: 93005; 99285; 36415 ×2; 82553 ×2; 82962 ×2; 82550 ×2; 85025; 80053; 84484 ×2; 93017; 71010; 78452; 90686; 93010; G0378 ×3; A9500; J2785; J3490 ×2; J1650; J0280; Q9969

== ENCOUNTER 2017-02-01 13:03 | Emergency (ER) | payer OTHER ==
--- NOTE | 2017-02-01 13:41 | ER Document Report ---
ED Medical Screen (RME) - General Chief Complaint: Chest Pain Stated Complaint: CHEST PRESSURE, BP ISSUES Time Seen by Provider: 02/01/17 13:36 Mode of Arrival: Ambulatory Information source: Patient TRAVEL OUTSIDE OF THE [place] IN LAST 30 DAYS: No - HPI Patient complains to provider of: CP Onset: Yesterday - pt. with c/o CP starting earlier today. Has taken ASA already - Related Data Allergies/Adverse Reactions: doxycycline [Doxycycline] Allergy (Severe, Verified 01/19/17 16:32) Anaphylaxis erythromycin base [Erythromycin Base] Allergy (Severe, Verified 01/19/17 16:32) Anaphylaxis latex [Latex] Allergy (Severe, Verified 01/19/17 16:32) Rash butorphanol tartrate [From Stadol] Allergy (Intermediate, Verified 01/19/17 16: 32) Difficulty breathing mycins Allergy (Severe, Uncoded 01/19/17 16:32) Anaphylaxis Past Medical History - Social History Chew tobacco use (# tins/day): No Frequency of alcohol use: None Drug Abuse: None Family history: CAD, CVA, Hypertension, Malignancy - Past Medical History Cardiac Medical History: Reports: Hx Heart Attack - 2009, Hx Hypercholesterolemia, Hx Hypertension Pulmonary Medical History: Reports: Hx Asthma, Hx Bronchitis - Hx bronchitis x3 times, Hx Pneumonia Neurological Medical History: Reports: Hx Migraine Endocrine Medical History: Reports: Hx Diabetes Mellitus Type 2, Hx Hypothyroidism Renal/ Medical History: Reports: Hx Kidney Stones. Denies: Hx Peritoneal Dialysis GI Medical History: Reports: Hx Gastroesophageal Reflux Disease, Hx Ulcer Musculoskeltal Medical History: Reports Hx Arthritis, Reports Hx Musculoskeletal Trauma Skin Medical History: Reports Hx Eczema Psychiatric Medical History: Reports: Hx Anxiety - panic attacks, Hx Depression Past Surgical History: Reports: Hx Appendectomy, Hx Cardiac Catheterization, Hx Hysterectomy, Hx Orthopedic Surgery - right hip with hardware, Hx Rectal Surgery - Hemmorhoids, Hx Tonsillectomy, Hx Tubal Ligation - Immunizations Immunizations up to date: Yes Hx Diphtheria, Pertussis, Tetanus Vaccination: Yes History of Influenza Vaccine for 01/2017 - 06/2017 Season: No Physical Exam - Vital signs Vitals: Temp Pulse Resp BP Pulse Ox 98.1 F 66 20 141/93 H 98 02/01/17 13:14 02/01/17 13:14 02/01/17 13:14 02/01/17 13:14 02/01/17 13:14 Course - Vital Signs Vital signs: Temp Pulse Resp BP Pulse Ox 98.1 F 66 20 141/93 H 98 02/01/17 13:14 02/01/17 13:14 02/01/17 13:14 02/01/17 13:14 02/01/17 13:14
[2017-02-01 13:50] LABS: ABSOLUTE BASOPHILS # (AUTO) 0.1 10^3/uL (0.0-0.2); ABSOLUTE EOSINOPHILS # (AUTO) 0.2 10^3/uL (0.0-0.6); ABSOLUTE LYMPHOCYTES (AUTO) 3.3 10^3/uL (0.5-4.7); ABSOLUTE MONOCYTES (AUTO) 0.6 10^3/uL (0.1-1.4); ABSOLUTE NEUT (AUTO) 4.6 10^3/uL (1.7-8.2); EOSINOPHILS % (AUTO) 1.7 % (0-6); HEMATOCRIT 42.3 % (36.0-47.0); HEMOGLOBIN 15.2 g/dL (12.0-15.5); HGB HCT DIFFERENCE 3.3; LYMPHOCYTES % (AUTO) 37.6 % (13-45); MEAN CORPUSCULAR HEMOGLOBIN 30.8 pg (27.0-33.4); MEAN CORPUSCULAR HGB CONC 35.8 g/dL (32.0-36.0); MEAN CORPUSCULAR VOLUME 86 fl (80-97); MONOCYTES % (AUTO) 6.7 % (3-13); RED BLOOD COUNT 4.93 10^6/uL (3.72-5.28); RED CELL DISTRIBUTION WIDTH 13.2 % (11.5-14.0); WHITE BLOOD COUNT 8.8 10^3/uL (4.0-10.5)
--- NOTE | 2017-02-01 14:01 | RADIOLOGY REPORT (SQ) ---
EXAM DESCRIPTION: CHEST PA/LAT COMPLETED DATE/TIME: 02/01/2017 1:52 pm REASON FOR STUDY: CP COMPARISON: 08/24/2015 EXAM PARAMETERS: NUMBER OF VIEWS: two views TECHNIQUE: Digital Frontal and Lateral radiographic views of the chest acquired. RADIATION DOSE: NA LIMITATIONS: none FINDINGS: LUNGS AND PLEURA: No opacities, masses or pneumothorax. No pleural effusion. MEDIASTINUM AND HILAR STRUCTURES: No masses or contour abnormalities. HEART AND VASCULAR STRUCTURES: Heart normal size. No evidence for failure. BONES: No acute findings. HARDWARE: None in the chest. OTHER: No other significant finding. IMPRESSION: NO SIGNIFICANT RADIOGRAPHIC FINDING IN THE CHEST. TECHNICAL DOCUMENTATION: JOB ID: [id number] [employer]- All Rights Reserved
[2017-02-01 14:05] LABS: ALANINE AMINOTRANSFERASE 32 U/L (9-52); ALBUMIN 4.7 g/dL (3.5-5.0); ALKALINE PHOSPHATASE 110 U/L (38-126); ANION GAP 14 (5-19); ASPARTATE AMINO TRANSFERASE 18 U/L (14-36); BILIRUBIN,DIRECT 0.3 mg/dL (0.0-0.4); BILIRUBIN,TOTAL 0.5 mg/dL (0.2-1.3); BLOOD UREA NITROGEN 15 mg/dL (7-20); CALCIUM 10.9 mg/dL (8.4-10.2); CARBON DIOXIDE 29 mmol/L (22-30); CHLORIDE 104 mmol/L (98-107); CREATININE RESULT 0.66 mg/dL (0.52-1.25); GLUCOSE 106 mg/dL (75-110); POTASSIUM 4.7 mmol/L (3.6-5.0); SODIUM 146.5 mmol/L (137-145); TOTAL PROTEIN 7.5 g/dL (6.3-8.2)
[2017-02-01] MEDS ORDERED: ALBUTEROL SULFATE 0.083% NEB 2.5 MG/3 ML AMPUL NEB ONE (14:16)
[2017-02-01] MEDS ORDERED: HYDROXYZINE PAMOATE 25 MG CAPSULE #4 (ER DISP) PO PRN (15:35)
--- NOTE | 2017-02-01 15:39 | ER Document Report ---
ED Cardiac - General Chief Complaint: Chest Pain Stated Complaint: CHEST PRESSURE, BP ISSUES Time Seen by Provider: 02/01/17 13:36 Mode of Arrival: Ambulatory Information source: Patient Notes: Patient is a 46-year-old female who presents to the ER today for chest tightness has been ongoing for a couple of weeks. Patient was admitted here recently for chest pain and had a normal stress test. Patient does have a follow-up appointment with her primary care provider as well as a drag sawyer coming up next week. She states that she came back today because the chest tightness worsened today with pain on deep breathing. She denies any cough, fever, chills, injury. She states that she does have a history of anxiety and is also having tingling in her fingertips and toes bilaterally. She denies any radiation of any chest pain or really any true "chest pain", states that it is more so tightness. TRAVEL OUTSIDE OF THE [place] IN LAST 30 DAYS: No - Related Data Allergies/Adverse Reactions: doxycycline [Doxycycline] Allergy (Severe, Verified 01/19/17 16:32) Anaphylaxis erythromycin base [Erythromycin Base] Allergy (Severe, Verified 01/19/17 16:32) Anaphylaxis latex [Latex] Allergy (Severe, Verified 01/19/17 16:32) Rash butorphanol tartrate [From Stadol] Allergy (Intermediate, Verified 01/19/17 16: 32) Difficulty breathing mycins Allergy (Severe, Uncoded 01/19/17 16:32) Anaphylaxis Past Medical History - General Information source: Patient - Social History Smoking Status: Never Smoker Chew tobacco use (# tins/day): No Frequency of alcohol use: None Drug Abuse: None Family History: None Patient has suicidal ideation: No Patient has homicidal ideation: No - Past Medical History Cardiac Medical History: Reports: Hx Heart Attack - 2010, Hx Hypercholesterolemia, Hx Hypertension Pulmonary Medical History: Reports: Hx Asthma, Hx Bronchitis - Hx bronchitis x3 times, Hx Pneumonia Neurological Medical History: Reports: Hx Migraine Endocrine Medical History: Reports: Hx Diabetes Mellitus Type 2, Hx Hypothyroidism Renal/ Medical History: Reports: Hx Kidney Stones. Denies: Hx Peritoneal Dialysis GI Medical History: Reports: Hx Gastroesophageal Reflux Disease, Hx Ulcer Musculoskeltal Medical History: Reports Hx Arthritis, Reports Hx Musculoskeletal Trauma Skin Medical History: Reports Hx Eczema Psychiatric Medical History: Reports: Hx Anxiety - panic attacks, Hx Depression Past Surgical History: Reports: Hx Appendectomy, Hx Cardiac Catheterization, Hx Hysterectomy, Hx Orthopedic Surgery - right hip with hardware, Hx Rectal Surgery - Hemmorhoids, Hx Tonsillectomy, Hx Tubal Ligation - Immunizations Immunizations up to date: Yes Hx Diphtheria, Pertussis, Tetanus Vaccination: Yes Hx Pneumococcal Vaccination: 04/12/07 Review of Systems - Review of Systems Constitutional: No symptoms reported EENT: No symptoms reported Cardiovascular: See HPI Respiratory: See HPI Gastrointestinal: No symptoms reported Genitourinary: No symptoms reported Female Genitourinary: No symptoms reported Musculoskeletal: No symptoms reported Skin: No symptoms reported Hematologic/Lymphatic: No symptoms reported Neurological/Psychological: No symptoms reported Physical Exam - Vital signs Vitals: Temp Pulse Resp BP Pulse Ox 98.1 F 66 20 141/93 H 98 02/01/17 13:14 02/01/17 13:14 02/01/17 13:14 02/01/17 13:14 02/01/17 13:14 - Notes Notes: PHYSICAL EXAMINATION: GENERAL: Well-appearing and in no acute distress. HEAD: Atraumatic, normocephalic. EYES: Pupils equal round and reactive to light, extraocular movements intact, sclera anicteric, conjunctiva are normal. NECK: Normal range of motion, supple without lymphadenopathy LUNGS: CTAB and equal. No wheezes rales or rhonchi. HEART: Regular rate and rhythm without murmurs ABDOMEN: Soft, no tenderness. No guarding, no rebound BACK: no vertebral tenderness, normal ROM GI/: no CVA tenderness EXTREMITIES: Normal range of motion, no pitting edema. No cyanosis. NEUROLOGICAL: Cranial nerves grossly intact. Normal sensory/motor exams. PSYCH: Normal mood, normal affect. SKIN: Warm, Dry, normal turgor, no rashes or lesions noted Course - Re-evaluation Re-evalutation: 02/01/17 15:46 Patient looks well, lab work is unremarkable today, normal cardiac enzymes, EKG revealing normal sinus rhythm without evidence of ischemia, and chest x-ray reveals no acute pathology. patient just had a stress test done that was normal and has follow-up in a few days with cardiology and her primary care provider. Patient states multiple times during this visit "I could be my anxiety." I will send her home with a small bottle of Vistaril to try at home. - Vital Signs Vital signs: Temp Pulse Resp BP Pulse Ox 98.1 F 66 13 137/94 H 96 02/01/17 13:14 02/01/17 13:14 02/01/17 14:01 02/01/17 14:01 02/01/17 14:01 - Laboratory Result Diagrams: 02/01/17 13:40 02/01/17 13:40 Laboratory results interpreted by me: 02/01/17 13:40 Sodium 146.5 H Calcium 10.9 H Discharge - Discharge Clinical Impression: Chest tightness Condition: Stable Disposition: HOME, SELF-CARE Additional Instructions: Return immediately for any new or worsening symptoms. Follow up with primary care provider, call tomorrow to make followup appointment.
[2017-02-01 16:04] VITALS: BP 139/90
--- NOTE | 2017-02-02 10:32 | EKG REPORT ---
SEVERITY:- ABNORMAL ECG - SINUS RHYTHM PROBABLE INFERIOR INFARCT, AGE INDETERMINATE CONSIDER ANTERIOR INFARCT : Confirmed by: Alda Kovacs MD 02-Feb-2017 10:31:59
--- NOTE | 2017-02-03 09:18 | EKG REPORT ---
SEVERITY:- ABNORMAL ECG - SINUS RHYTHM PROBABLE INFERIOR INFARCT, AGE INDETERMINATE CONSIDER ANTERIOR INFARCT : Confirmed by: Alda Kovacs MD 03-Feb-2017 09:18:08
== END 2017-02-01 16:04 | disposition home or self-care (01) ==
LOC: ER 13:03
DX: R07.89 Other chest pain (principal); R20.2 Paresthesia of skin; I25.2 Old myocardial infarction; I10 Essential (primary) hypertension; J45.909 Unspecified asthma, uncomplicated; Z91.041 Radiographic dye allergy status; Z88.5 Allergy status to narcotic agent; Z87.892 Personal history of anaphylaxis; Z88.1 Allergy status to other antibiotic agents
CPT/HCPCS: 93005; 94640; 99285; 36415; 85025; 80053; 84484; 71020; 93010; J3490

== ENCOUNTER 2017-02-02 13:57 | Emergency (ER) | payer OTHER ==
--- NOTE | 2017-02-02 14:59 | ER Document Report ---
ED General - General Mode of Arrival: Ambulatory Information source: Patient TRAVEL OUTSIDE OF THE [place] IN LAST 30 DAYS: No <CONCEPCIÓN MADRID - Last Filed: 02/02/17 20:28> <BEKAJUNIEDANA - Last Filed: 02/02/17 20:38> - General Chief Complaint: Chest Pain Stated Complaint: TIGHTNESS IN CHEST Time Seen by Provider: 02/02/17 14:42 Notes: Patient is a 46-year-old female presented emergency department for chest pain and tightness since 01/19/2017. Patient states that her chest hurts when she breathes or moves. Patient has been seen recently for this and was admitted. Patient had a negative stress test while she was here. Patient states that her pain is not painful and more comfortable. Patient states she was given Vistaril while she was here. Patient states she takes Celexa 10 mg for her anxiety but she has run out of this medication. Patient states that she had broken heart syndrome on January 2010. Patient does have an appointment with her senior python developer on 02/04/2017. Patient also has diabetes mellitus. (CONCEPCIÓN MADRID) - Related Data Allergies/Adverse Reactions: doxycycline [Doxycycline] Allergy (Severe, Verified 02/02/17 14:26) Anaphylaxis erythromycin base [Erythromycin Base] Allergy (Severe, Verified 02/02/17 14:26) Anaphylaxis latex [Latex] Allergy (Severe, Verified 02/02/17 14:26) Rash butorphanol tartrate [From Stadol] Allergy (Intermediate, Verified 02/02/17 14: 26) Difficulty breathing mycins Allergy (Severe, Uncoded 02/02/17 14:26) Anaphylaxis Past Medical History - General Information source: Patient - Social History Smoking Status: Never Smoker Cigarette use (# per day): No Chew tobacco use (# tins/day): No Smoking Education Provided: No Frequency of alcohol use: Occasional Drug Abuse: None Family History: None Patient has suicidal ideation: No Patient has homicidal ideation: No - Past Medical History Cardiac Medical History: Reports: Hx Heart Attack - 2009, Hx Hypercholesterolemia, Hx Hypertension Pulmonary Medical History: Reports: Hx Asthma, Hx Bronchitis - Hx bronchitis x3 times, Hx Pneumonia Neurological Medical History: Reports: Hx Migraine Endocrine Medical History: Reports: Hx Diabetes Mellitus Type 2, Hx Hypothyroidism Renal/ Medical History: Reports: Hx Kidney Stones GI Medical History: Reports: Hx Gastroesophageal Reflux Disease, Hx Ulcer Musculoskeltal Medical History: Reports Hx Arthritis, Reports Hx Musculoskeletal Trauma Skin Medical History: Reports Hx Eczema Psychiatric Medical History: Reports: Hx Anxiety - panic attacks, Hx Depression Past Surgical History: Reports: Hx Appendectomy, Hx Cardiac Catheterization, Hx Hysterectomy, Hx Orthopedic Surgery - right hip with hardware, Hx Rectal Surgery - Hemmorhoids, Hx Tonsillectomy, Hx Tubal Ligation - Immunizations Immunizations up to date: Yes Hx Diphtheria, Pertussis, Tetanus Vaccination: Yes Hx Pneumococcal Vaccination: 04/12/07 <CONCEPCIÓN MADRID - Last Filed: 02/02/17 20:28> Review of Systems - Review of Systems Cardiovascular: See HPI, Chest pain Respiratory: See HPI, Hurts to breathe Neurological/Psychological: Anxiety <CONCEPCIÓN MADRID - Last Filed: 02/02/17 20:28> - Review of Systems -: Yes All other systems reviewed and negative <DANA GAN - Last Filed: 02/02/17 20:38> Physical Exam <CONCEPCIÓN MADRID - Last Filed: 02/02/17 20:28> <DANA GAN - Last Filed: 02/02/17 20:38> - Vital signs Vitals: Temp Pulse Resp BP Pulse Ox 98.3 F 84 16 130/85 H 97 02/02/17 14:26 02/02/17 14:26 02/02/17 14:26 02/02/17 14:26 02/02/17 14:26 - Notes Notes: GENERAL: Alert, interacts well. No acute distress. HEAD: Normocephalic, atraumatic. EYES: Pupils equal, round, and reactive to light. Extraocular movements intact. ENT: Oral mucosa moist, tongue midline. NECK: Full range of motion. Supple. Trachea midline. LUNGS: Clear to auscultation bilaterally, no wheezes, rales, or rhonchi. No respiratory distress. No pleural rub. Reproducible pain to the anterior chest wall. HEART: Regular rate and rhythm. No murmurs, gallops, or rubs. ABDOMEN: Soft, non-tender. Non-distended. Bowel sounds present in all 4 quadrants. EXTREMITIES: Moves all 4 extremities spontaneously. No edema. No cyanosis. NEUROLOGICAL: Alert and oriented x3. Normal speech. PSYCH: Normal affect, normal mood. SKIN: Warm, dry, normal turgor. No rashes or lesions noted. (CONCEPCIÓN MADRID) Course <CONCEPCIÓN MADRID - Last Filed: 02/02/17 20:28> <DANA GAN - Last Filed: 02/02/17 20:38> - Re-evaluation Re-evalutation: 02/02/17 15:04 Patient has already had full cardiac workup including stress test, has follow- up appointment with cardiology on the , EKG shows inferior scar, unchanged T -wave inversions in 2, 3, aVF as well as V2 through V6 per my interpretation. Sinus rhythm at a rate of 68. Pain is reproducible on palpation of the right side of the chest. Discussed with patient that this could be costochondritis, recommend starting steroids, already taking Percocet for her back pain. Notes that she is taking a little bit more than she is supposed to. Patient counseled regarding not taking more of her prescribed narcotic than directed. No further narcotics will be prescribed here. Patient will be discharged home, encouraged to follow-up with cardiology as an outpatient. Patient has no evidence of respiratory distress, they have Sergio tried breathing treatments for this and has not relieved her pain. (DANA GAN) - Vital Signs Vital signs: Temp Pulse Resp BP Pulse Ox 98 F 80 16 142/78 H 97 02/02/17 15:24 02/02/17 15:24 02/02/17 15:24 02/02/17 15:24 02/02/17 15:24 - EKG Interpretation by Me Additional EKG results interpreted by me: 02/02/17 15:05 Sinus rhythm, rate of 83, unchanged T-wave inversions in 2, 3, aVF V2 through V6 , no ST segment elevations or depressions per my interpretation. (DANA GAN) Discharge <CONCEPCIÓN MADRID - Last Filed: 02/02/17 20:28> <DANA GAN - Last Filed: 02/02/17 20:38> - Discharge Clinical Impression: Right-sided chest wall pain, Essential hypertension Condition: Stable Disposition: HOME, SELF-CARE Instructions: Chest Wall Pain ([facility]) Prescriptions: Prednisone [Deltasone 20 mg Tablet] 2 tab PO DAILY #6 tablet Scribe Attestation: 02/02/17 20:38 I personally performed the services described in the documentation, reviewed and edited the documentation which was dictated to the scribe in my presence, and it accurately records my words and actions. (DANA GAN) Scribe Documentation - Scribe Written by Scribe:: Miguel Weems 02/02/2017 20:30 acting as scribe for :: Noé <CONCEPCIÓN MADRID - Last Filed: 02/02/17 20:28>
[2017-02-02] MEDS ORDERED: PREDNISONE 20 MG TABLET PO ONE (15:01)
[2017-02-02 15:28] VITALS: BP 142/78
== END 2017-02-02 15:25 | disposition home or self-care (01) ==
LOC: ER 13:57
DX: R07.89 Other chest pain (principal); I10 Essential (primary) hypertension; F41.9 Anxiety disorder, unspecified; Z79.899 Other long term (current) drug therapy
CPT/HCPCS: 99284; J7512

== ENCOUNTER 2017-05-09 16:50 | Emergency (ER) | payer OTHER ==
--- NOTE | 2017-05-09 17:58 | ER Document Report ---
ED Medical Screen (RME) - General Chief Complaint: Chest Pain Stated Complaint: CHEST PAIN Time Seen by Provider: 05/09/17 17:52 Mode of Arrival: Ambulatory Information source: Patient Notes: 46 yo non CAD, non smoker, ashtma, chronic bronchtis, spasms of chest muscles, GERD, female c/o left retrosternal chest pain since 22:00, constant with episodes of excruciating searing pain lasts 20 seconds, every few minutes. Took protonix thinking it was indigestion, persisted this am. Hx [place] Cardiomyopathy EF 40% due to scar tissue, CHF, Angina, Sleep apnea. Took hydroxyzine and klonipin did not help. At 3 pm took NTG 2 doses which did not help. 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 Moaning clutching her chest. [employer] Stress 01/19/2017 showed left apical scar-previous SC. TRAVEL OUTSIDE OF THE [place] IN LAST 30 DAYS: No - Related Data Allergies/Adverse Reactions: doxycycline [Doxycycline] Allergy (Severe, Verified 02/02/17 14:26) Anaphylaxis erythromycin base [Erythromycin Base] Allergy (Severe, Verified 02/02/17 14:26) Anaphylaxis latex [Latex] Allergy (Severe, Verified 02/02/17 14:26) Rash butorphanol tartrate [From Stadol] Allergy (Intermediate, Verified 02/02/17 14: 26) Difficulty breathing mycins Allergy (Severe, Uncoded 02/02/17 14:26) Anaphylaxis Past Medical History - Social History Family history: CAD, CVA, Hypertension, Malignancy - Past Medical History Cardiac Medical History: Reports: Hx Heart Attack - 2009, Hx Hypercholesterolemia, Hx Hypertension Pulmonary Medical History: Reports: Hx Asthma, Hx Bronchitis - Hx bronchitis x3 times, Hx Pneumonia Neurological Medical History: Reports: Hx Migraine Endocrine Medical History: Reports: Hx Diabetes Mellitus Type 2, Hx Hypothyroidism Renal/ Medical History: Reports: Hx Kidney Stones. Denies: Hx Peritoneal Dialysis GI Medical History: Reports: Hx Gastroesophageal Reflux Disease, Hx Ulcer Musculoskeltal Medical History: Reports Hx Arthritis, Reports Hx Musculoskeletal Trauma Skin Medical History: Reports Hx Eczema Psychiatric Medical History: Reports: Hx Anxiety - panic attacks, Hx Depression Past Surgical History: Reports: Hx Appendectomy, Hx Cardiac Catheterization, Hx Hysterectomy, Hx Orthopedic Surgery - right hip with hardware, Hx Rectal Surgery - Hemmorhoids, Hx Tonsillectomy, Hx Tubal Ligation - Immunizations Immunizations up to date: Yes Hx Diphtheria, Pertussis, Tetanus Vaccination: Yes History of Influenza Vaccine for 01/2017 - 06/2017 Season: No Physical Exam - Vital signs Vitals: Temp Pulse Resp BP Pulse Ox 97.7 F 81 20 125/86 H 97 05/09/17 17:05 05/09/17 17:05 05/09/17 17:05 05/09/17 17:05 05/09/17 17:05 Course - Vital Signs Vital signs: Temp Pulse Resp BP Pulse Ox 97.7 F 81 20 125/86 H 97 05/09/17 17:05 05/09/17 17:05 05/09/17 17:05 05/09/17 17:05 05/09/17 17:05
[2017-05-09] MEDS ORDERED: ASPIRIN 81 MG TABLET, CHEWABLE PO ONE (18:00)
[2017-05-09] MEDS ORDERED: OXYCODONE-ACETAMINOPHEN 5-325 MG TABLET PO ONE (18:01)
--- NOTE | 2017-05-09 19:10 | RADIOLOGY REPORT (SQ) ---
EXAM DESCRIPTION: CHEST PA/LAT COMPLETED DATE/TIME: 05/09/2017 6:57 pm REASON FOR STUDY: chest pain COMPARISON: January 2017 EXAM PARAMETERS: NUMBER OF VIEWS: two views TECHNIQUE: Digital Frontal and Lateral radiographic views of the chest acquired. RADIATION DOSE: NA LIMITATIONS: none FINDINGS: LUNGS AND PLEURA: No opacities, masses or pneumothorax. No pleural effusion. MEDIASTINUM AND HILAR STRUCTURES: No masses or contour abnormalities. HEART AND VASCULAR STRUCTURES: Heart normal size. No evidence for failure. BONES: No acute findings. HARDWARE: None in the chest. OTHER: No other significant finding. IMPRESSION: NO SIGNIFICANT RADIOGRAPHIC FINDING IN THE CHEST. TECHNICAL DOCUMENTATION: JOB ID: [id number] [id number]- All Rights Reserved
[2017-05-09 19:54] LABS: ABSOLUTE EOSINOPHILS # (AUTO) 0.2 10^3/uL (0.0-0.6); ABSOLUTE LYMPHOCYTES (AUTO) 3.1 10^3/uL (0.5-4.7); ABSOLUTE MONOCYTES (AUTO) 0.7 10^3/uL (0.1-1.4); ABSOLUTE NEUT (AUTO) 6.5 10^3/uL (1.7-8.2); BASOPHILS % (AUTO) 0.2 % (0-2); EOSINOPHILS % (AUTO) 2.3 % (0-6); HEMATOCRIT 43.3 % (36.0-47.0); LYMPHOCYTES % (AUTO) 29.3 % (13-45); MEAN CORPUSCULAR HEMOGLOBIN 30.2 pg (27.0-33.4); MEAN CORPUSCULAR HGB CONC 34.7 g/dL (32.0-36.0); MEAN CORPUSCULAR VOLUME 87 fl (80-97); MONOCYTES % (AUTO) 6.9 % (3-13); PLATELET COUNT 272 10^3/uL (150-450); RED BLOOD COUNT 4.97 10^6/uL (3.72-5.28); RED CELL DISTRIBUTION WIDTH 13.9 % (11.5-14.0); SEGMENTED NEUTROPHILS % (AUTO) 61.3 % (42-78); TOTAL CELLS COUNTED % (AUTO) 100 %; WHITE BLOOD COUNT 10.6 10^3/uL (4.0-10.5)
[2017-05-09 20:16] LABS: ALANINE AMINOTRANSFERASE 46 U/L (9-52); ALBUMIN 4.6 g/dL (3.5-5.0); ALKALINE PHOSPHATASE 95 U/L (38-126); ANION GAP 14 (5-19); ASPARTATE AMINO TRANSFERASE 34 U/L (14-36); BILIRUBIN,DIRECT 0.3 mg/dL (0.0-0.4); BILIRUBIN,TOTAL 0.6 mg/dL (0.2-1.3); BLOOD UREA NITROGEN 14 mg/dL (7-20); CALCIUM 10.2 mg/dL (8.4-10.2); CARBON DIOXIDE 25 mmol/L (22-30); CHLORIDE 104 mmol/L (98-107); CREATINE KINASE 54 U/L (30-135); GLUCOSE 96 mg/dL (75-110); POTASSIUM 4.5 mmol/L (3.6-5.0); SODIUM 142.9 mmol/L (137-145); TOTAL PROTEIN 6.8 g/dL (6.3-8.2)
[2017-05-09 20:26] LABS: CREATINE KINASE MB 0.45 ng/mL (<4.55); TROPONIN I 0.017 ng/mL
--- NOTE | 2017-05-09 23:25 | ER Document Report ---
ED General - General Chief Complaint: Chest Pain Stated Complaint: CHEST PAIN Time Seen by Provider: 05/09/17 17:52 Mode of Arrival: Ambulatory Notes: Patient is 46-year-old female presents with complaint of chest pain. She says it is a pinpoint sharp chest pain over left sternal border that radiates a few inches superiorly. This has been ongoing since 10 PM yesterday. No fevers. No difficulty breathing. No vomiting. [facility] She has an ejection fraction of 40%. She had a stress test this past fall which showed apical scarring from the previous injury from Tak[place]o. She has no history of coronary stenting. She has had previous heart cath which showed normal coronary arteries. Her front line supervisor is Dr. Muñoz. Patient says pain is much worse with any type of movement. TRAVEL OUTSIDE OF THE [place] IN LAST 30 DAYS: No - Related Data Allergies/Adverse Reactions: doxycycline [Doxycycline] Allergy (Severe, Verified 02/02/17 14:26) Anaphylaxis erythromycin base [Erythromycin Base] Allergy (Severe, Verified 02/02/17 14:26) Anaphylaxis latex [Latex] Allergy (Severe, Verified 02/02/17 14:26) Rash butorphanol tartrate [From Stadol] Allergy (Intermediate, Verified 02/02/17 14: 26) Difficulty breathing mycins Allergy (Severe, Uncoded 02/02/17 14:26) Anaphylaxis Past Medical History - General Information source: Patient - Social History Smoking Status: Never Smoker Chew tobacco use (# tins/day): No Frequency of alcohol use: Rare Drug Abuse: None Family History: None Patient has suicidal ideation: No Patient has homicidal ideation: No - Past Medical History Cardiac Medical History: Reports: Hx Congestive Heart Failure, Hx Heart Attack - 2010, Hx Hypercholesterolemia, Hx Hypertension Pulmonary Medical History: Reports: Hx Asthma, Hx Bronchitis - Hx bronchitis x3 times, Hx Pneumonia Neurological Medical History: Reports: Hx Migraine Endocrine Medical History: Reports: Hx Diabetes Mellitus Type 2, Hx Hypothyroidism Renal/ Medical History: Reports: Hx Kidney Stones. Denies: Hx Peritoneal Dialysis GI Medical History: Reports: Hx Gastroesophageal Reflux Disease, Hx Ulcer Musculoskeltal Medical History: Reports Hx Arthritis, Reports Hx Musculoskeletal Trauma Skin Medical History: Reports Hx Eczema Psychiatric Medical History: Reports: Hx Anxiety - panic attacks, Hx Depression Past Surgical History: Reports: Hx Appendectomy, Hx Cardiac Catheterization, Hx Hysterectomy, Hx Orthopedic Surgery - right hip with hardware, Hx Rectal Surgery - Hemmorhoids, Hx Tonsillectomy, Hx Tubal Ligation - Immunizations Immunizations up to date: Yes Hx Diphtheria, Pertussis, Tetanus Vaccination: Yes Hx Pneumococcal Vaccination: 04/12/07 Review of Systems - Review of Systems Notes: My Normal Review Basic REVIEW OF SYSTEMS: CONSTITUTIONAL : Denies fever, chills, or sweats. Denies recent illness. EENT: Denies eye, ear, throat, or mouth pain or symptoms. Denies nasal or sinus congestion. CARDIOVASCULAR: Has chest pain RESPIRATORY: Denies cough, cold, or chest congestion. Denies shortness of breath, difficulty breathing, or wheezing. GASTROINTESTINAL: Denies abdominal pain. Denies nausea, vomiting, or diarrhea. Denies constipation. Last BM: MUSCULOSKELETAL: Denies neck or back pain or joint pain or swelling. SKIN: Denies rash or skin lesions. NEUROLOGICAL: Denies altered mental status or loss of consciousness. Denies headache. Denies weakness or paralysis or loss of use of either side. Denies problems with gait or speech. Denies sensory or motor loss. ALL OTHER SYSTEMS REVIEWED AND NEGATIVE. Physical Exam - Vital signs Vitals: Temp Pulse Resp BP Pulse Ox 97.7 F 81 20 125/86 H 97 05/09/17 17:05 05/09/17 17:05 05/09/17 17:05 05/09/17 17:05 05/09/17 17:05 - Notes Notes: General Appearance: Well nourished, alert, cooperative, no acute distress, no obvious discomfort. Vitals: reviewed, See vital signs table. Head: no swelling or tenderness to the head Eyes: PERRL, EOMI, Conjuctiva clear Mouth: No decreasd moisture Chest wall: Tenderness to palpation that is pinpoint over the the left sternal border at the costochondral junction. She was a touch area patient grabs my hand and pulls away and yells and screams in pain. Right side of the chest is nontender. She says the pain is reproduced to palpation of the same pain that she has been having. Neck: Supple, no neck tenderness, No thyromegaly Lungs: No wheezing, No rales, No rhonci, No accessory muscle use, good air exchange bilaterally. Heart: Normal rate, Regular rythm, No murmur, no rub Abdomen: Normal BS, soft, No rigidity, No abdominal tenderness, No guarding, no rebound, no abdominal masses, no organomegaly Extremities: strength 5/5 in all extremities, good pulses in all extremities, no swelling or tenderness in the extremities, no edema. Skin: warm, dry, appropriate color, no rash Neuro: speech clear, oriented x 3, normal affect, responds appropriately to questions. Course - Re-evaluation Re-evalutation: 05/10/17 05:58 I did speak with Dr. Muñoz, patient's front line supervisor. I informed the patient pain she is very reproducible palpation severe muscular skeletal exam. Her troponin repeat troponin are negative. Dr. Muñoz agrees with disposition home but says he wants patient follow-up with him in the office tomorrow. I did explain to the patient she is agreeable to seeing Dr. Muñoz in office tomorrow. Patient encouraged to return to ER if she has worsening pain, fevers, or feels unwell. Dictation of this chart was performed using voice recognition software; therefore, there may be some unintended grammatical errors. - Vital Signs Vital signs: Temp Pulse Resp BP Pulse Ox 98.1 F 69 16 140/89 H 96 05/10/17 03:00 05/10/17 03:00 05/10/17 03:00 05/10/17 03:00 05/10/17 03:00 - Laboratory Result Diagrams: 05/09/17 19:09 05/09/17 19:09 Laboratory results interpreted by me: 05/09/17 19:09 WBC 10.6 H - EKG Interpretation by Me Additional EKG results interpreted by me: 05/09/17 23:24 EKG is reviewed and interpreted by me. EKG shows normal sinus rhythm with rate of [address] segment elevation or depression. Patient does have T-wave inversions in leads aVF, V3 and V4 but these are completely unchanged comparison to her old EKG from February 02, 2017. WA interval, QRS duration QTc intervals are within normal range. Discharge - Discharge Clinical Impression: Chest pain Qualifiers: Chest pain type: unspecified Qualified Code(s): R07.9 - Chest pain, unspecified Condition: Good Disposition: HOME, SELF-CARE Additional Instructions: Your heart enzymes tonight are normal. I suspect your pain is related to inflammation of your rib cartilage. Please follow up today with Dr. Muñoz. He is expecting you. I have discussed your case with him over the phone. Return to the ER if you have change in location of your pain, worsening pain, or feel unwell. Please do not fill the Percocet prescription until you clear it with your pain management physician. Prescriptions: Oxycodone HCl/Acetaminophen [Percocet 5-325 mg Tablet] 1 tab PO Q4H PRN #15 tablet PRN Reason: Forms: Return to Work Referrals: DAVID MUÑOZ MD [ACTIVE STAFF] - 05/10/17
[2017-05-09] MEDS ORDERED: MORPHINE SULFATE 10 MG/ML INJ IV ONE (23:37)
[2017-05-10 03:08] VITALS: BP 140/89
--- NOTE | 2017-05-10 07:38 | EKG REPORT ---
SEVERITY:- ABNORMAL ECG - SINUS RHYTHM INFERIOR INFARCT, AGE INDETERMINATE CONSIDER ANTERIOR INFARCT : Confirmed by: Alda Kovacs MD 10-May-2017 07:37:51
== END 2017-05-10 03:05 | disposition home or self-care (01) ==
LOC: ER 16:50
DX: R07.9 Chest pain, unspecified (principal)
CPT/HCPCS: 93005; 99285; 96374; 36415; 82553; 82550; 85025; 80053; 84484; 71046; 93010; J2270

== ENCOUNTER → 2017-07-05 | Outpatient (CLI) | payer OTHER ==
--- NOTE | 2017-07-05 12:50 | RADIOLOGY REPORT (SQ) ---
EXAM DESCRIPTION: BARIUM SWALLOW ESOPHAGUS COMPLETED DATE/TIME: 07/05/2017 10:03 am REASON FOR STUDY: DYSPHAGIA, UNSPECIFIED R13.10 DYSPHAGIA, UNSPECIFIED COMPARISON: None. TECHNIQUE: Under fluoroscopic guidance, patient ingested effervescent granules followed by thick and thin barium. Fluoroscopic spot images and routine radiographic images acquired and stored on PACS. 12 MM BARIUM TABLET GIVEN: Yes No significant delay in passage. LIMITATIONS: None. FLUOROSCOPY TIME: FLUORO TIME: 1 minutes 51 seconds 10 series of digital images saved to PACS. FINDINGS: NEUROMUSCULAR COORDINATION OF SWALLOW: Normal. No aspiration. ESOPHAGEAL MOTILITY: Normal peristalsis. No esophageal spasm. ESOPHAGEAL MUCOSA: Normal mucosa without masses or ulceration. GASTRO-ESOPHAGEAL JUNCTION: Small hiatal hernia. Unprovoked gastroesophageal reflux to the midesopha db. No esophageal stricture identified. NON-GI TRACT STRUCTURES: No significant finding. OTHER: No other significant finding. IMPRESSION: Small hiatal hernia. Unprovoked gastroesophageal reflux to the midesophagus No fixed esophageal stricture identified. No esophageal mucosal abnormalities COMMENT: Quality ID 145: Final reports for procedures using fluoroscopy that document radiation exp osure indices, or exposure time and number of fluorographic images (if radiation exposure indices are not available) TECHNICAL DOCUMENTATION: JOB ID: [id number] [employer]- All Rights Reserved Reading location - IP/workstation name: [email or web address]
== END ==
LOC: RAD 09:25
PROVIDERS: ATTEND Internal Medicine Gastroenterology
DX: R13.10 Dysphagia, unspecified (principal)
CPT/HCPCS: 74220

== ENCOUNTER → 2017-07-25 | Outpatient (CLI) | payer OTHER ==
--- NOTE | 2017-07-25 14:46 | RADIOLOGY REPORT (SQ) ---
EXAM DESCRIPTION: NM GASTRIC EMPTYING STUDY COMPLETED DATE/TIME: 07/25/2017 2:33 pm REASON FOR STUDY: EARLY SATIETY R68.81 EARLY SATIETY COMPARISON: Upper GI 07/05/2017 RADIONUCLIDE AND DOSE: 2.07 millicuries Tc-99m Sulfur Colloid. The route of agent administration: Oral. TECHNIQUE: Serial images acquired to 4 hours with each image recorded over a 30 minute time frame. I mage intensity values plotted with respect to time with linear regression algorithm. LIMITATIONS: None. FINDINGS: Patient was observed for 4 hours. Gastric emptying at 30 minutes was 14% Gastric emptying at 60 minutes was 29%. Gastric emptying at 90 minutes was 43%. Gastric emptying at 120 minutes was 57% Gastric emptying at 240 minutes was 100%. IMPRESSION: NORMAL GASTRIC EMPTYING. TECHNICAL DOCUMENTATION: JOB ID: [id number] [employer]- All Rights Reserved Reading location - IP/workstation name: [email or web address]
== END ==
LOC: RAD 07:38
PROVIDERS: ATTEND Internal Medicine Gastroenterology
DX: R68.81 Early satiety (principal)
CPT/HCPCS: 78264; A9541

== ENCOUNTER → 2017-08-20 | Outpatient (CLI) | payer OTHER ==
--- NOTE | 2017-08-20 10:16 | ST Modified Barium Swallow ---
Recommendation - Recommendations Recommendations: No diet change recommendations. Patient to be discharged from outpatient speech therapy as no oral or pharyngeal deficits were seen. Medical Diagnoses - Medical Diagnoses Medical Diagnosis Description & ICD-10 Code(s): dysphagia R13.10 Other Medical Diagnoses/Co-Morbidities: per patient report: history of asthma, cervical cancer, total hysterectomy, diabetes, heart condition, high blood pressure, high cholesterol, reflux ST Modified Barium Swallow - General Date: 08/20/17 Referring Physician: Dr. Taylor Risks/Precautions: None Reason for Referral: globus sensation - History History obtained from: Patient -: Medical - Erin "Alfred Sky was referred by Dr. Dalal for swallow assessment due to complaints of globus sensation. 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 Physician stated request for Modified Barium Swallow Study. Patient reports globus sensation during eating and drinking. States that the physician performed esophageal dilation, she states that the globus sensation got worse after the dilation. Sometimes feels that she cannot breath due coughing with globus sensation. Patient does report significant reflux, and post nasal drip. States that she feels a frequent "tickle" in her throat. She was evaluated at chairside in outpatient clinic on 07/30/17. No gross swallowing deficits seen at that time. Medications: Patient did not give full list of medications, does report prilosec , heart medications, and currently on amoxicillin for ear infection Allergies: per patient report: docxcoline, e-mycin - Functional Status Prior Functional Status: INDEPENDENT: feeding - independent Current Functional Limitations: feeding - globus sensation - Subjective Patient/caregiver goal(s): safe swallow Cognitive-Linguistic Function: WNL Speech Intelligibility: WNL Current Nutritional Means: PO Current PO diet: Regular Current symptoms: Coughing, c/o Globus sensation Pain: Patient reports, 0/5 - Objective Assessment: Upright, Left Lateral - Food Trials Used Food trials used: Thin liquids, Pureed, Regular The patient: Was Able to Self Feed - Oral-Motor Skills Dentition: Partial - Assessment Oral prep: Normal Labial closure: Adequate Leakage: None Mastication: Adequate Lingual Movement: Normal Oral stage: Normal for this Procedure - Pharyngeal Stage Initiation of Pharyngeal Stage Reflex: Normal Decreased laryngeal elevation: No Reduced Velopharyngeal Closure: no Reduced pressure generation: No reduced tongue-based retraction: No Pre-swallow pooling in valleculae: None Pre-Swallow pooling in pyriforms: None Reduced Thyro-Hyoid approximation: No Reduced epiglottic excursion: No Reduced pharyngeal peristalsis/contraction: No Post-swallow residulas vallecular: None Post-Swallow residuals in pyriforms: None Post-Swallow Residuals: no residuals - Fall Risk Assessment Medications/Conditions that increase fall risks include: Antidepressants, sedatives, anti-arrhythmic, diuretic, benzodiazipenes, neuroleptics. BP regulation problems, cardiac problems, balance or gait deficits, neurological problems. Fall Risk Actions Taken: No action needed - Behavioral Observations During evaluation process patient: was pleasant, was cooperative, able to answer questions - Treatment / Educational Needs: Treatment/Education Needs: Treatment consisted of patient education on the role of the Speech Pathologist. Patient's plan of care and golas were communicated as well as scheduling and attendance policies. Recommendations for initial home program were shared. Patient demonstrated understanding and verbalized agreement. - Impression/Summary Laryngeal Penetration: Flash, Cough, during swallow Consistency: Thin Tracheal Aspiration: no Patient presents with: Normal swallow at eval Risk of Aspiration: Minimal Risk of nutritional compromise: None Evaluation and Findings: Patient presented with normal oral and pharyngeal swallowing mechanism. Possible flash penetration of thin liquid seen x1. Coughing was seen on other trials, however, no material was seen to enter airway when coughing occured. Patient continued to complain of globus sensation with solid trials, however, no residue was seen in valleculae and pyriform sinus. Patient to be discharged from outpatient services. - Recommendations Solid diet recommendations: Regular Liquid Diet Modification: Thin Pt/Family education and followup with MD: Yes Dysphagia therapy with MICROBIAL SPECIALIST: discontinue therapy Recommended techniques: Fully Upright During Meal, Small Bites and Sips, Alternate Bites/Sips Information, Precautions and Recommendations: Patient (Written), Patient (Verbal ) - Time Total Time: 20 - Plan of Care Strategies to optimize patient understanding include:: ongoing assessment of educational needs, implementation of educational strategies, and re-education. - - -: Thank you for the opportunity to work with this patient and his/her family. Should you have any questions about this patient's plan or progress, I can be reached at [phone]. Charge G Code? - - -: No
--- NOTE | 2017-08-20 11:21 | RADIOLOGY REPORT (SQ) ---
EXAM DESCRIPTION: COOKIE SWALLOW COMPLETED DATE/TIME: 08/20/2017 8:54 am REASON FOR STUDY: DYSPHAGIA (R13.10) R13.10 DYSPHAGIA, UNSPECIFIED COMPARISON: BARIUM SWALLOW 07/05/2017 TECHNIQUE: Videofluoroscopic swallowing examination was performed in conjunction with speech patholo gy. Videofluoroscopic imaging was obtained and reviewed and these are the findings: RADIATION DOSE: TOTAL FLUOROSCOPY TIME: 49 SECONDS 1 fluoroscopy image saved to PACS. LIMITATIONS: None FINDINGS: The patient was brought into the fluoro room and placed upright on a modified barium swall ow chair. The patient was then given multiple consistencies mixed with barium to swallow under live fluoroscopic video guidance. According to the Speech Pathologist there was flash laryngeal penetrati on was noted with thin liquid consistencies. All other consistencies were swallowed without difficul ty. Normal oral and pharyngeal transit time was observed. No significant post swallow residual seen . Please see speech pathology report for further details and recommendations. IMPRESSION: FLASH LARYNGEAL PENETRATION THIN LIQUIDS ONLY. NO TRACHEAL ASPIRATION.PLEASE SEE SPEECH PATHOLOGIST REPORT FOR OTHER FINDINGS AND RECOMMENDATIONS. COMMENT: Quality ID 145: Final reports for procedures using fluoroscopy that document radiation exp osure indices, or exposure time and number of fluorographic images (if radiation exposure indices are not available) TECHNICAL DOCUMENTATION: JOB ID: [id number] [employer]- All Rights Reserved Reading location - IP/workstation name: [email or web address]
== END ==
LOC: RAD 07:49
PROVIDERS: ATTEND Internal Medicine Gastroenterology
DX: R13.10 Dysphagia, unspecified (principal)
CPT/HCPCS: 74230

== ENCOUNTER 2017-12-04 22:14 | Emergency (ER) | payer OTHER ==
[2017-12-04] MEDS ORDERED: ASPIRIN 81 MG TABLET, CHEWABLE PO ONE (22:16)
--- NOTE | 2017-12-04 23:04 | ER Document Report ---
ED Cardiac - General Chief Complaint: Chest Pain Stated Complaint: CHEST PAIN Time Seen by Provider: 12/04/17 22:49 Notes: This is a 46-year-old female patient with history of extensive cardiac problems followed by local rolloff truck driver. Last cardiac catheterization was approximately 3 months ago. 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 Chronic angina. Ejection fraction of greater than 40%. Followed by Dr. Muñoz with cardiology. States that she moved to the left and had sudden onset of left-sided chest pain. No shortness of breath. Took some nitroglycerin and it was better. Was told to come to the ER whenever she had chest pain like this based on her extensive history. Recent cardiac catheterization revealed no significant stenosis that required stenting. TRAVEL OUTSIDE OF THE [place] IN LAST 30 DAYS: No - HPI Patient complains to provider of: Chest pain Chest pain location: Under breast Quality of pain: Moderate Chest pain radiation location: Left arm, Back Severity now: Moderate Severity at worst: Severe Pain level currently: 3 Chest pain precipitating factors: Physical Exertion - Related Data Allergies/Adverse Reactions: doxycycline [Doxycycline] Allergy (Severe, Verified 12/04/17 23:17) Anaphylaxis erythromycin base [Erythromycin Base] Allergy (Severe, Verified 12/04/17 23:17) Anaphylaxis latex [Latex] Allergy (Severe, Verified 12/04/17 23:17) Rash butorphanol tartrate [From Stadol] Allergy (Intermediate, Verified 12/04/17 23: 17) Difficulty breathing mycins Allergy (Severe, Uncoded 02/02/17 14:26) Anaphylaxis Past Medical History - General Information source: Patient - Social History Smoking Status: Never Smoker Frequency of alcohol use: Rare Drug Abuse: None Lives with: Family Family History: None Patient has suicidal ideation: No Patient has homicidal ideation: No - Past Medical History Cardiac Medical History: Reports: Hx Congestive Heart Failure, Hx Heart Attack - 2010, Hx Hypercholesterolemia, Hx Hypertension Pulmonary Medical History: Reports: Hx Asthma, Hx Bronchitis - Hx bronchitis x3 times, Hx Pneumonia Neurological Medical History: Reports: Hx Migraine Endocrine Medical History: Reports: Hx Diabetes Mellitus Type 2, Hx Hypothyroidism Renal/ Medical History: Reports: Hx Kidney Stones. Denies: Hx Peritoneal Dialysis GI Medical History: Reports: Hx Gastroesophageal Reflux Disease, Hx Ulcer Musculoskeletal Medical History: Reports Hx Arthritis, Reports Hx Musculoskeletal Trauma Skin Medical History: Reports Hx Eczema Psychiatric Medical History: Reports: Hx Anxiety - panic attacks, Hx Depression Past Surgical History: Reports: Hx Appendectomy, Hx Cardiac Catheterization, Hx Hysterectomy, Hx Orthopedic Surgery - right hip with hardware, Hx Rectal Surgery - Hemmorhoids, Hx Tonsillectomy, Hx Tubal Ligation - Immunizations Immunizations up to date: Yes Hx Diphtheria, Pertussis, Tetanus Vaccination: Yes Hx Pneumococcal Vaccination: 04/12/07 Review of Systems - Review of Systems Notes: Constitutional: denies: Chills, Diaphoresis, Fever, Malaise, Weakness EENT: denies: Eye discharge, Blurred vision, Tearing, Double vision, Nose congestion, Nose discharge, Throat swelling, Mouth pain Cardiovascular: denies: Palpitations, Heart racing, Orthopnea, Dyspnea,. Positive for the following: Chest pain Respiratory: denies: Cough, Hurts to breathe, Wheezing, Shortness of breath Gastrointestinal: denies: Abdominal pain, Diarrhea, Nausea, Vomiting, Black stools, bright red blood in stool Genitourinary: denies: Burning, Dysuria, Discharge, Frequency, Flank pain, Hematuria Musculoskeletal: denies: Joint pain, Joint swelling, Muscle pain, Muscle stiffness, back pain Hematologic/Lymphatic: denies: Anemia, Easy bleeding, Easy bruising, Blood clots Neurological/Psychological: denies: Confusion, Dementia, Depression, Loss of consciousness Skin: No lesions, no masses, no skin breakdown, no abscesses Physical Exam - Vital signs Vitals: Temp Pulse Resp BP Pulse Ox 98.0 F 95 20 118/81 97 12/04/17 22:22 12/04/17 22:22 12/04/17 22:22 12/04/17 22:22 12/04/17 22:22 Interpretation: Normal - General General appearance: Appears well, Alert - HEENT Head: Normocephalic, Atraumatic Eyes: Normal Pupils: PERRL - Respiratory Respiratory status: No respiratory distress Chest status: Nontender Breath sounds: Normal Chest palpation: Normal - Cardiovascular Rhythm: Regular Heart sounds: Normal auscultation Murmur: No - Abdominal Inspection: Normal Distension: No distension Bowel sounds: Normal Tenderness: Nontender Organomegaly: No organomegaly - Back Back: Normal, Nontender - Extremities General upper extremity: Normal inspection, Nontender, Normal color, Normal ROM , Normal temperature General lower extremity: Normal inspection, Nontender, Normal color, Normal ROM , Normal temperature, Normal weight bearing. No: Blossom's sign - Neurological Neuro grossly intact: Yes Cognition: Normal Orientation: AAOx4 Velasquez Coma Scale Eye Opening: Spontaneous [place] Coma Scale Verbal: Oriented Velasquez Coma Scale Motor: Obeys Commands Velasquez Coma Scale Total: 15 Speech: Normal Motor strength normal: LUE, RUE, LLE, RLE Sensory: Normal - Psychological Associated symptoms: Normal affect, Normal mood - Skin Skin Temperature: Warm Skin Moisture: Dry Skin Color: Normal Course - Re-evaluation Re-evalutation: 12/05/17 01:33 Laboratory 12/04/17 12/04/17 12/04/17 22:50 22:50 22:50 WBC 10.0 RBC 4.74 Hgb 14.4 Hct 42.3 MCV 89 MCH 30.3 MCHC 33.9 RDW 13.8 Plt Count 305 Seg Neutrophils % 56.9 Lymphocytes % 30.0 Monocytes % 7.7 Eosinophils % 4.1 Basophils % 1.3 Absolute Neutrophils 5.7 Absolute Lymphocytes 3.0 Absolute Monocytes 0.8 Absolute Eosinophils 0.4 Absolute Basophils 0.1 Sodium 146.0 H Potassium 4.3 Chloride 105 Carbon Dioxide 26 Anion Gap 15 BUN 18 Creatinine 0.65 Est GFR ( Amer) > 60 Est GFR (Non-Af Amer) > 60 Glucose 153 H Calcium 9.9 Total Bilirubin 0.5 Direct Bilirubin 0.3 Neonat Total Bilirubin Not Reportable Neonat Direct Bilirubin Not Reportable Neonat Indirect Bili Not Reportable AST 22 ALT 34 Alkaline Phosphatase 92 Creatine Kinase 54 CK-MB (CK-2) 0.41 Troponin I < 0.012 Total Protein 6.9 Albumin 4.5 Chest X-Ray 12/04/17 22:16 IMPRESSION: 1. No acute pulmonary process identified. First set of cardiac labs negative. Based on the fact the patient was seen by rolloff truck driver, recent cardiac catheterization, recent echocardiogram and recent extensive workup there is likely very little else that needs to be done. We will keep her for 2 sets of cardiac labs. If second set of labs is unremarkable would feel very comfortable sending her home as this more likely represents her underlying angina. 12/05/17 03:24 Second set of troponin negative. Recent angiogram which was unchanged. Find nothing further at this time that we would do her for her as an inpatient. Her pain is completely resolved. Does have a long-standing history of angina. Will DC and recommend that she follow-up with her rolloff truck driver as soon as possible for repeat evaluation. - Vital Signs Vital signs: Temp Pulse Resp BP Pulse Ox 98.0 F 95 20 125/90 H 97 12/04/17 22:22 12/04/17 22:22 12/05/17 01:02 12/05/17 01:02 12/05/17 01:02 - Laboratory Result Diagrams: 12/04/17 22:50 12/04/17 22:50 Laboratory results interpreted by me: 12/04/17 22:50 Sodium 146.0 H Glucose 153 H - EKG Interpretation by Hi EKG shows normal: Sinus rhythm, [place], Intervals, QRS Complexes, ST-T Waves When compared to previous EKG there are: No significant change Discharge - Discharge Clinical Impression: Angina at rest Condition: Good Disposition: HOME, SELF-CARE Instructions: Angina Episode ([facility]) Additional Instructions: Take all of your regular medications as instructed. In the event you develop chest pain, shortness of breath any worsening symptoms or concerns please return for repeat evaluation. Referrals: DAVID KNIGHT MD [NO LOCAL MD] - Follow up as needed DAVID MUÑOZ MD [ACTIVE STAFF] - Follow up as needed
[2017-12-04 23:11] LABS: ABSOLUTE BASOPHILS # (AUTO) 0.1 10^3/uL (0.0-0.2); ABSOLUTE EOSINOPHILS # (AUTO) 0.4 10^3/uL (0.0-0.6); ABSOLUTE MONOCYTES (AUTO) 0.8 10^3/uL (0.1-1.4); ABSOLUTE NEUT (AUTO) 5.7 10^3/uL (1.7-8.2); BASOPHILS % (AUTO) 1.3 % (0-2); EOSINOPHILS % (AUTO) 4.1 % (0-6); HEMATOCRIT 42.3 % (36.0-47.0); HEMOGLOBIN 14.4 g/dL (12.0-15.5); MEAN CORPUSCULAR HEMOGLOBIN 30.3 pg (27.0-33.4); MEAN CORPUSCULAR HGB CONC 33.9 g/dL (32.0-36.0); MEAN CORPUSCULAR VOLUME 89 fl (80-97); MONOCYTES % (AUTO) 7.7 % (3-13); PLATELET COUNT 305 10^3/uL (150-450); RED BLOOD COUNT 4.74 10^6/uL (3.72-5.28); RED CELL DISTRIBUTION WIDTH 13.8 % (11.5-14.0); SEGMENTED NEUTROPHILS % (AUTO) 56.9 % (42-78); TOTAL CELLS COUNTED % (AUTO) 100 %
[2017-12-04 23:32] LABS: ALANINE AMINOTRANSFERASE 34 U/L (9-52); ALBUMIN 4.5 g/dL (3.5-5.0); ALKALINE PHOSPHATASE 92 U/L (38-126); ANION GAP 15 (5-19); ASPARTATE AMINO TRANSFERASE 22 U/L (14-36); BILIRUBIN,DIRECT 0.3 mg/dL (0.0-0.4); BILIRUBIN,TOTAL 0.5 mg/dL (0.2-1.3); BLOOD UREA NITROGEN 18 mg/dL (7-20); CALCIUM 9.9 mg/dL (8.4-10.2); CARBON DIOXIDE 26 mmol/L (22-30); CHLORIDE 105 mmol/L (98-107); CREATINE KINASE 54 U/L (30-135); GLUCOSE 153 mg/dL (75-110); POTASSIUM 4.3 mmol/L (3.6-5.0); TOTAL PROTEIN 6.9 g/dL (6.3-8.2)
[2017-12-04 23:38] LABS: CREATINE KINASE MB 0.41 ng/mL (<4.55)
[2017-12-04 23:39] LABS: TROPONIN I < 0.012 ng/mL
--- NOTE | 2017-12-04 23:43 | RADIOLOGY REPORT (SQ) ---
EXAM DESCRIPTION: XR CHEST 1 VIEW COMPLETED DATE/TME: 12/04/2017 22:16 CLINICAL HISTORY: CP COMPARISON: 05/09/2017 FINDINGS: Single frontal view of the chest. The cardiomediastinal silhouette has normal size and contour. No consolidation, pneumothorax, or pleural effusion. No displaced rib fractures identified. Leads overlie the chest. Upper abdominal soft tissues are unremarkable. IMPRESSION: 1. No acute pulmonary process identified.
[2017-12-05] MEDS ORDERED: NITROGLYCERIN 2% OINTMENT 1 GM PACKET TP ONE (00:11)
[2017-12-05] MEDS ORDERED: MORPHINE SULFATE 10 MG/ML INJ IV ONE (00:11)
[2017-12-05 03:25] VITALS: BP 114/86
--- NOTE | 2017-12-06 08:58 | EKG REPORT ---
SEVERITY:- ABNORMAL ECG - SINUS RHYTHM INFERIOR INFARCT, AGE INDETERMINATE CONSIDER POSTERIOR WALL INVOLVEMENT : Confirmed by: Varghese Khalil 06-Dec-2017 08:57:55
== END 2017-12-05 03:42 | disposition home or self-care (01) ==
LOC: ER 22:14
DX: I20.9 Angina pectoris, unspecified (principal); R07.9 Chest pain, unspecified; I50.9 Heart failure, unspecified; E78.00 Pure hypercholesterolemia, unspecified; I11.0 Hypertensive heart disease with heart failure; Z88.3 Allergy status to other anti-infective agents; Z91.040 Latex allergy status; I25.2 Old myocardial infarction; Z90.710 Acquired absence of both cervix and uterus
CPT/HCPCS: 93005; 99285; 96374; 36415; 82553; 82550; 85025; 80053; 84484; 71045; 93010; J2270

== ENCOUNTER → 2017-12-06 | Outpatient (CLI) | payer OTHER ==
--- NOTE | 2017-12-06 14:40 | RADIOLOGY REPORT (SQ) ---
EXAM DESCRIPTION: CTA CHEST COMPLETED DATE/TIME: 12/06/2017 2:08 pm REASON FOR STUDY: R07.9 CHEST PAIN, UNSPECIFIED R07.9 CHEST PAIN, UNSPECIFIED COMPARISON: None. TECHNIQUE: CT scan of the chest performed using helical scanning technique with dynamic intravenous contrast injection. Images reviewed with lung, soft tissue and bone windows. Reconstructed coronal and sagittal MPR images reviewed. Additional 3 dimensional post-processing performed to develop Maximal Intensity Projection images (NC P). All images stored on PACS. All CT scanners at this facility use dose modulation, iterative reconstruction, and/or weight based d osing when appropriate to reduce radiation dose to as low as reasonably achievable (ALARA). [facility]: Dose Right [facility]: CareDose [facility]: Dose Right [facility]: Teradose 4D [facility]: [employer] CONTRAST TYPE AND DOSE: contrast/concentration: Isovue 350.00 mg/ml; Total Contrast Delivered: 61.0 ml; Total Saline Delivered: 106.0 ml Contrast bolus optimized for the pulmonary arteries. Not diagnostic for the aorta. RENAL FUNCTION: GFR > 60. RADIATION DOSE: CT Rad equipment meets quality standard of care and radiation dose reduction techniq ues were employed. CTDIvol: 9.1 - 13.2 mGy. DLP: 329 mGy-cm. . LIMITATIONS: None. FINDINGS: LUNGS AND PLEURA: No masses, infiltrates, or pneumothorax. No pleural effusions or pleura l calcifications. AORTA AND GREAT VESSELS: No aneurysm. Contrast bolus not optimized for the aorta. HEART: No pericardial effusion. PULMONARY ARTERIES: No emboli visualized in the main pulmonary arteries or the segmental branches. HILAR AND MEDIASTINAL STRUCTURES: No identified masses or abnormal nodes. HARDWARE: None in the chest. UPPER ABDOMEN: Liver cyst. Limited exam. THYROID AND OTHER SOFT TISSUES: No masses. No adenopathy. BONES: No acute or significant finding. 3D MIPS: Confirm above findings. OTHER: No other significant finding. IMPRESSION: No PE. No acute findings. COMMENT: Quality ID # [id number]: Final reports with documentation of one or more dose reduction techniques (e.g., Automated exposure control, adjustment of the mA and/or kV according to patient size, use of iterative reconstruction technique) TECHNICAL DOCUMENTATION: JOB ID: [id number] [employer]- All Rights Reserved Reading location - IP/workstation name: [email or web address]
== END ==
LOC: RAD 15:19
PROVIDERS: ATTEND Physician Assistant Medical
DX: R07.9 Chest pain, unspecified (principal)
CPT/HCPCS: 71275

== ENCOUNTER 2018-12-04 19:09 | Emergency (ER) | payer SELFPAY ==
[2018-12-04 19:27] VITALS: BP 154/93
[2018-12-04] MEDS ORDERED: ASPIRIN 81 MG TABLET, CHEWABLE PO ONE (20:13)
--- NOTE | 2018-12-04 20:39 | EKG REPORT ---
SEVERITY:- ABNORMAL ECG - SINUS RHYTHM INFERIOR INFARCT, AGE INDETERMINATE ANTEROLATERAL INFARCT, AGE INDETERMINATE BORDERLINE PROLONGED QT INTERVAL : Confirmed by: Alda Kovacs MD 04-Dec-2018 20:37:52
[2018-12-04 21:06] LABS: ABSOLUTE BASOPHILS # (AUTO) 0.1 10^3/uL (0.0-0.2); ABSOLUTE EOSINOPHILS # (AUTO) 0.2 10^3/uL (0.0-0.6); ABSOLUTE LYMPHOCYTES (AUTO) 3.5 10^3/uL (0.5-4.7); ABSOLUTE MONOCYTES (AUTO) 0.8 10^3/uL (0.1-1.4); ABSOLUTE NEUT (AUTO) 5.4 10^3/uL (1.7-8.2); BASOPHILS % (AUTO) 1.4 % (0-2); EOSINOPHILS % (AUTO) 1.7 % (0-6); HEMATOCRIT 45.8 % (36.0-47.0); HEMOGLOBIN 15.5 g/dL (12.0-15.5); LYMPHOCYTES % (AUTO) 34.9 % (13-45); MEAN CORPUSCULAR HEMOGLOBIN 29.5 pg (27.0-33.4); MEAN CORPUSCULAR HGB CONC 33.9 g/dL (32.0-36.0); MEAN CORPUSCULAR VOLUME 87 fl (80-97); MONOCYTES % (AUTO) 7.7 % (3-13); PLATELET COUNT 265 10^3/uL (150-450); RED BLOOD COUNT 5.26 10^6/uL (3.72-5.28); RED CELL DISTRIBUTION WIDTH 13.4 % (11.5-14.0); SEGMENTED NEUTROPHILS % (AUTO) 54.3 % (42-78); TOTAL CELLS COUNTED % (AUTO) 100 %; WHITE BLOOD COUNT 9.9 10^3/uL (4.0-10.5)
[2018-12-04 21:20] LABS: APPEARANCE,URINE CLOUDY; BILIRUBIN,URINE NEGATIVE (NEGATIVE); CALCIUM OXALATE CRYSTALS,URINE TOO NUMEROUS TO CNT /HPF; COLOR,URINE AMBER; GLUCOSE, URINE 50 mg/dL (NEGATIVE); KETONES,URINE TRACE mg/dL (NEGATIVE); LEUKOCYTE ESTERASE,URINE MODERATE (NEGATIVE); NITRITE,URINE NEGATIVE (NEGATIVE); PROTEIN,URINE 30 mg/dL (NEGATIVE); URINE SPECIFIC GRAVITY 1.029
--- NOTE | 2018-12-04 21:22 | RADIOLOGY REPORT (SQ) ---
EXAM DESCRIPTION: [employer]: XR CHEST 2 VIEWS Views: 2 CLINICAL HISTORY: 47 years Female, Chest pain COMPARISON: 12/04/2017 FINDINGS: The lungs are clear. No pneumothorax or significant pleural effusion. Cardiomediastinal silhouette is within normal limits. Bony structures are unremarkable for age. IMPRESSION: 1. No acute cardiothoracic abnormality.
[2018-12-04 21:26] LABS: ALBUMIN 4.6 g/dL (3.5-5.0); ALKALINE PHOSPHATASE 111 U/L (38-126); ANION GAP 10 (5-19); ASPARTATE AMINO TRANSFERASE 23 U/L (14-36); BILIRUBIN,DIRECT 0.4 mg/dL (0.0-0.4); BILIRUBIN,TOTAL 0.7 mg/dL (0.2-1.3); BLOOD UREA NITROGEN 13 mg/dL (7-20); CALCIUM 10.1 mg/dL (8.4-10.2); CARBON DIOXIDE 27 mmol/L (22-30); CHLORIDE 106 mmol/L (98-107); CREATINE KINASE 55 U/L (30-135); GLUCOSE 164 mg/dL (75-110); POTASSIUM 4.4 mmol/L (3.6-5.0); TOTAL PROTEIN 7.5 g/dL (6.3-8.2)
[2018-12-04 21:29] LABS: URINE AMPHETAMINES SCREEN NEGATIVE; URINE BARBITURATES SCREEN NEGATIVE; URINE BENZODIAZEPINES SCREEN NEGATIVE; URINE COCAINE SCREEN NEGATIVE; URINE MARIJUANA (THC) SCREEN NEGATIVE; URINE METHADONE SCREEN NEGATIVE; URINE PHENCYCLIDINE SCREEN NEGATIVE
[2018-12-04 21:39] LABS: CREATINE KINASE MB 0.38 ng/mL (<4.55); TROPONIN I < 0.012 ng/mL
[2018-12-04] MEDS ORDERED: KETOROLAC TROMETHAMINE INJ/PF 30 MG/1 ML SDV IV ONE (22:18)
[2018-12-04] MEDS ORDERED: CEFTRIAXONE 1 GM/D5W RTU 1 GM/50 ML RTUPB IV ONE (22:18)
--- NOTE | 2018-12-04 23:09 | ER Document Report ---
Entered by ANTONIO DAMON SCRIBE 12/04/188 Acting as scribe for:DEL ZARCO MD ED Cardiac - General Chief Complaint: Chest Pain Stated Complaint: CHEST PAIN Time Seen by Provider: 12/04/18 20:11 Primary Care Provider: [facility] [Provider Group] - Follow up as needed Mode of Arrival: Ambulatory Information source: Patient Notes: 47 year old female with idiopathic cardiomyopathy and takayasu arteritis that presents to the emergency department today with complaints of chest pain which began this afternoon at 1600. Patient states the pain has increased since onset and it is exacerbated with laughing. Patient is on pain management for chronic back pain. Patient reports being out of her "medication" since June after losing her insurance although she does still have and take Ranexa. TRAVEL OUTSIDE OF THE [place] IN LAST 30 DAYS: No - Related Data Allergies/Adverse Reactions: doxycycline [Doxycycline] Allergy (Severe, Verified 12/04/18 19:10) Anaphylaxis erythromycin base [Erythromycin Base] Allergy (Severe, Verified 12/04/18 19:10) Anaphylaxis latex [Latex] Allergy (Severe, Verified 12/04/18 19:10) Rash butorphanol tartrate [From Stadol] Allergy (Intermediate, Verified 12/04/18 19:10) Difficulty breathing mycins Allergy (Severe, Uncoded 12/04/18 19:10) Anaphylaxis Past Medical History - General Information source: Patient - Social History Smoking Status: Never Smoker Cigarette use (# per day): No Frequency of alcohol use: None Drug Abuse: None Lives with: Family Family History: None Patient has suicidal ideation: No Patient has homicidal ideation: No - Past Medical History Cardiac Medical History: Reports: Hx Congestive Heart Failure, Hx Heart Attack - 2010, Hx Hypercholesterolemia, Hx Hypertension Pulmonary Medical History: Reports: Hx Asthma, Hx Bronchitis - Hx bronchitis x3 times, Hx Pneumonia Neurological Medical History: Reports: Hx Migraine Endocrine Medical History: Reports: Hx Diabetes Mellitus Type 2 Renal/ Medical History: Reports: Hx Kidney Stones GI Medical History: Reports: Hx Gastroesophageal Reflux Disease, Hx Ulcer Musculoskeletal Medical History: Reports Hx Arthritis, Reports Hx Musculoskeletal Trauma Skin Medical History: Reports Hx Eczema Psychiatric Medical History: Reports: Hx Anxiety - panic attacks, Hx Depression Past Surgical History: Reports: Hx Appendectomy, Hx Cardiac Catheterization, Hx Hysterectomy, Hx Orthopedic Surgery - right hip with hardware, Hx Rectal Surgery - Hemmorhoids, Hx Tonsillectomy, Hx Tubal Ligation - Immunizations Immunizations up to date: Yes Hx Diphtheria, Pertussis, Tetanus Vaccination: Yes Hx Pneumococcal Vaccination: 04/12/07 Review of Systems - Review of Systems Constitutional: No symptoms reported EENT: No symptoms reported Cardiovascular: See HPI, Chest pain Respiratory: No symptoms reported Gastrointestinal: No symptoms reported Genitourinary: No symptoms reported Female Genitourinary: No symptoms reported Musculoskeletal: No symptoms reported Skin: No symptoms reported Hematologic/Lymphatic: No symptoms reported Neurological/Psychological: No symptoms reported -: Yes All other systems reviewed and negative Physical Exam - Vital signs Vitals: Temp Pulse Resp BP Pulse Ox 98.2 F 96 17 154/93 H 96 12/04/18 19:26 12/04/18 19:26 12/04/18 19:26 12/04/18 19:12/04/18 19:26 - Notes Notes: Physical Exam: General: Alert, appears well. HEENT: Normocephalic. Atraumatic. PERRL. Extraocular movements intact. Oropharynx clear. Neck: Supple. Non-tender. Respiratory: No respiratory distress. Clear and equal breath sounds bilaterally. Patient rubbing anterior chest throughout exam. Exquisite chest wall tenderness with palpation from the sternum to left lateral chest wall. Cardiovascular: Regular rate and rhythm. Abdominal: Normal Inspection. Non-tender. No distension. Normal Bowel Sounds. Back: No gross abnormalities. Extremities: Moves all four extremities. Upper extremities: Normal inspection. Normal ROM. Lower extremities: Normal inspection. No edema. Normal ROM. Neurological: Normal cognition. AAOx4. Normal speech. Psychological: Normal affect. Normal Mood. Skin: Warm. Dry. Normal color. Course - Re-evaluation Re-evalutation: 12/05/18 01:13 The patient has run out of her medications. She does not have Medicaid which she is trying to obtain. I will refill the medications for her blood pressure, her isosorbide, her diabetes and medication for the urinary tract infection. I am not refilling the large list of medication she takes that are either pain management, psychiatric management, or the ones that are too expensive for her to be able to buy. - Vital Signs Vital signs: Temp Pulse Resp BP Pulse Ox 98.2 F 96 17 154/93 H 96 12/04/18 19:26 12/04/18 19:26 12/04/18 19:26 12/04/18 19:26 12/04/18 19:26 - Laboratory Result Diagrams: 12/04/18 20:50 12/04/18 20:50 Laboratory results interpreted by me: 12/04/18 12/04/18 20:50 20:50 Glucose 164 H Urine Protein 30 H Urine Glucose (UA) 50 H Urine Ketones TRACE H Urine Blood SMALL H Urine Urobilinogen 2.0 H Ur Leukocyte Esterase MODERATE H - Diagnostic Test Radiology reviewed: Image reviewed, Reports reviewed - Chest x-ray is unremarkable. - EKG Interpretation by Me EKG shows normal: Sinus rhythm, [place], ST-T Waves. abnormal: Intervals - Borderline prolonged QT interval, QRS Complexes - Old inferior infarct, old anterolateral infarct Rate: Normal - 99 Rhythm: NSR When compared to previous EKG there are: No significant change - Compared to 05/09/2017, and 12/04/2017 Discharge - Discharge Clinical Impression: Chest wall pain, Has run out of medications Urinary tract infection Qualifiers: Urinary tract infection type: site unspecified Hematuria presence: with hematuria Qualified Code(s): N39.0 - Urinary tract infection, site not specified; R31.9 - Hematuria, unspecified Condition: Stable Disposition: HOME, SELF-CARE Additional Instructions: Chest Wall Pain: Your chest pain has been diagnosed as coming from the chest wall. This is often caused by straining the muscles or joints in the chest during physical activity, direct trauma, coughing, or vigorous vomiting. Persons with arthritis are especially prone to this type of pain, due to inflammation of the cartilage joints near the breast bone. Occasionally, no cause can be found. Rest from strenuous physical activity. This kind of chest pain is usually made worse by movement of the chest. Depending on the symptoms, we may prescribe medicine for pain, muscle relaxation, and antiinflammatory effects. If the pain is new, and seems to be due to muscle strain, cold packs can help. Otherwise, apply gentle warmth to the painful area for 15 minutes every hour or two. You should contact the doctor immediately if things change. Further evaluation is needed if you develop a fever or cough, if the nature of the pain changes, or if you become short of breath. Urinary Tract Infection: Your evaluation indicates that you have a urinary tract infection. This is due to germs growing in the bladder. This is a common problem. This infection usually responds quickly to antibiotics. Your antibiotic should be taken exactly as prescribed. Drink plenty of fluids -- three to four quarts a day. Occasionally, a bladder anesthetic will be prescribed to help stop the feeling of urgency until the antibiotic has a chance to clear the infection. This may cause your urine to be dark orange. Certain urine infections require a culture. If the doctor obtained a culture, the results will be back in two days. You should call to see if a change in treatment is needed. A repeat urinalysis after you finish treatment is often recommended. The physician will let you know if further testing is required. Call the doctor if you develop fever, chills, flank pain, inability to urinate, or blood in the urine. Take medication as prescribed for blood pressure, diabetes, and the urinary tract infection. Drink plenty of fluids. Follow-up with a local primary care provider or the [facility] for management of your medical problems. RETURN TO THE EMERGENCY ROOM IF ANY NEW OR WORSENING SYMPTOMS. Prescriptions: Losartan Potassium 50 mg PO QHS #30 tablet Isosorbide Mononitrate [Imdur 30 mg Tablet.er] 30 mg PO DAILY #30 tab.er.24h Cephalexin Monohydrate [Keflex 500 mg Capsule] 500 mg PO TID #15 capsule Metoprolol Tartrate [Lopressor 50 mg Tablet] 50 mg PO Q12H #60 tablet Metformin HCl 500 mg PO BID #60 tablet Referrals: [facility] [Provider Group] - Follow up as needed Scribe Attestation: 12/04/18 22:54 I personally performed the services described in the documentation, reviewed and edited the documentation which was dictated to the scribe in my presence, and it accurately records my words and actions. I personally performed the services described in the documentation, reviewed and edited the documentation which was dictated to the scribe in my presence, and it accurately records my words and actions.
[2018-12-05] MEDS ORDERED: METFORMIN HCL 500 MG TABLET PO ONE (01:21)
[2018-12-05] MEDS ORDERED: METOPROLOL TARTRATE 50 MG TABLET PO ONE (01:21)
[2018-12-05] MEDS ORDERED: LOSARTAN POTASSIUM 50 MG TABLET PO ONE (01:21)
[2018-12-05] MEDS ORDERED: ISOSORBIDE MONONITRATE 30 MG TAB.ER.24H PO ONE (01:22)
== END 2018-12-05 01:47 | disposition home or self-care (01) ==
LOC: ER 19:09
DX: R07.89 Other chest pain (principal); N39.0 Urinary tract infection, site not specified; R31.9 Hematuria, unspecified; I42.8 Other cardiomyopathies; M31.4 Aortic arch syndrome [Takayasu]; M54.9 Dorsalgia, unspecified; G89.29 Other chronic pain; Z79.899 Other long term (current) drug therapy; I50.9 Heart failure, unspecified; I25.2 Old myocardial infarction; I11.0 Hypertensive heart disease with heart failure; J45.909 Unspecified asthma, uncomplicated; E11.9 Type 2 diabetes mellitus without complications
CPT/HCPCS: 93005; 36415; 82553; 82550; 83690; 85025; 80053; 81001; 84484; 80307; 71046; 93010; J1885; J0696; 87086; 87088

== ENCOUNTER 2019-02-08 13:47 | Emergency (ER) | payer MEDICAID ==
[2019-02-08] MEDS ORDERED: ASPIRIN 81 MG TABLET, CHEWABLE PO ONE (14:30)
--- NOTE | 2019-02-08 14:32 | ER Document Report ---
ED Medical Screen (RME) - General Chief Complaint: Chest Pressure Stated Complaint: MEDICATION REFILL Time Seen by Provider: 02/08/19 14:23 Primary Care Provider: GOLDIE CARMONA PA-C [Primary Care Provider] - Follow up as needed Information source: Patient Notes: Patient presents complaining of chest pain that she describes as a soreness that started today as well as shortness of breath. Patient has extensive cardiac history and states that she only has an ejection fraction of 45 and that when she tries to do too much she may develop chest discomfort and soreness. Patient does not feel as though she is having any cardiac problems at this time. Patient reports that she went to her primary doctor's office and try to be seen in the urgent care for refill of her medications that she has been out of them for the past month. The urgent care would not refill patient's medications as a told her that she would need to have labs performed. I have greeted and performed a rapid initial assessment of this patient. A comprehensive ED assessment and evaluation of the patient, analysis of test results and completion of the medical decision making process will be conducted by additional ED providers. TRAVEL OUTSIDE OF THE [place] IN LAST 30 DAYS: No - Related Data Allergies/Adverse Reactions: doxycycline [Doxycycline] Allergy (Severe, Verified 02/08/19 14:25) Anaphylaxis erythromycin base [Erythromycin Base] Allergy (Severe, Verified 02/08/19 14:25) Anaphylaxis latex [Latex] Allergy (Severe, Verified 02/08/19 14:25) Rash butorphanol tartrate [From Stadol] Allergy (Intermediate, Verified 02/08/19 14:25) Difficulty breathing mycins Allergy (Severe, Uncoded 02/08/19 14:25) Anaphylaxis Past Medical History - Social History Family history: CAD, CVA, Hypertension, Malignancy - Past Medical History Cardiac Medical History: Reports: Hx Congestive Heart Failure, Hx Heart Attack - 2010, Hx Hypercholesterolemia, Hx Hypertension Pulmonary Medical History: Reports: Hx Asthma, Hx Bronchitis - Hx bronchitis x3 times, Hx Pneumonia Neurological Medical History: Reports: Hx Migraine Endocrine Medical History: Reports: Hx Diabetes Mellitus Type 2, Hx Hypothyroidism Renal/ Medical History: Reports: Hx Kidney Stones. Denies: Hx Peritoneal Dialysis GI Medical History: Reports: Hx Gastroesophageal Reflux Disease, Hx Ulcer Musculoskeltal Medical History: Reports Hx Arthritis, Reports Hx Musculoskeletal Trauma Skin Medical History: Reports Hx Eczema Psychiatric Medical History: Reports: Hx Anxiety - panic attacks, Hx Depression Past Surgical History: Reports: Hx Appendectomy, Hx Cardiac Catheterization, Hx Hysterectomy, Hx Orthopedic Surgery - right hip with hardware, Hx Rectal Surgery - Hemmorhoids, Hx Tonsillectomy, Hx Tubal Ligation - Immunizations Immunizations up to date: Yes Hx Diphtheria, Pertussis, Tetanus Vaccination: Yes Physical Exam - Vital signs Vitals: Temp Pulse Resp BP Pulse Ox 97.9 F 75 16 159/98 H 97 02/08/19 13:54 02/08/19 13:54 02/08/19 13:54 02/08/19 13:54 02/08/19 13:54 - Respiratory Respiratory status: No respiratory distress. No: Labored, Tachypnea Chest status: Tender Course - Vital Signs Vital signs: Temp Pulse Resp BP Pulse Ox 97.9 F 75 16 159/98 H 97 02/08/19 13:54 02/08/19 13:54 02/08/19 13:54 02/08/19 13:54 02/08/19 13:54 Doctor's Discharge - Discharge Referrals: GOLDIE CARMONA PA-C [Primary Care Provider] - Follow up as needed
[2019-02-08 15:10] LABS: ABSOLUTE BASOPHILS # (AUTO) 0.1 10^3/uL (0.0-0.2); ABSOLUTE EOSINOPHILS # (AUTO) 0.2 10^3/uL (0.0-0.6); ABSOLUTE LYMPHOCYTES (AUTO) 3.9 10^3/uL (0.5-4.7); ABSOLUTE MONOCYTES (AUTO) 0.7 10^3/uL (0.1-1.4); ABSOLUTE NEUT (AUTO) 4.2 10^3/uL (1.7-8.2); BASOPHILS % (AUTO) 0.7 % (0-2); HEMATOCRIT 42.7 % (36.0-47.0); HEMOGLOBIN 14.5 g/dL (12.0-15.5); LYMPHOCYTES % (AUTO) 43.3 % (13-45); MEAN CORPUSCULAR HEMOGLOBIN 30.1 pg (27.0-33.4); MEAN CORPUSCULAR VOLUME 89 fl (80-97); MONOCYTES % (AUTO) 8.2 % (3-13); PLATELET COUNT 246 10^3/uL (150-450); RED BLOOD COUNT 4.82 10^6/uL (3.72-5.28); RED CELL DISTRIBUTION WIDTH 13.6 % (11.5-14.0); SEGMENTED NEUTROPHILS % (AUTO) 45.8 % (42-78); TOTAL CELLS COUNTED % (AUTO) 100 %; WHITE BLOOD COUNT 9.1 10^3/uL (4.0-10.5)
--- NOTE | 2019-02-08 15:12 | RADIOLOGY REPORT (SQ) ---
EXAM DESCRIPTION: CHEST 2 VIEWS COMPLETED DATE/TIME: 02/08/2019 3:04 pm REASON FOR STUDY: justine montez COMPARISON: 12/04/2018 EXAM PARAMETERS: NUMBER OF VIEWS: two views TECHNIQUE: Digital Frontal and Lateral radiographic views of the chest acquired. RADIATION DOSE: NA LIMITATIONS: none FINDINGS: LUNGS AND PLEURA: No opacities, masses or pneumothorax. No pleural effusion. MEDIASTINUM AND HILAR STRUCTURES: No masses or contour abnormalities. HEART AND VASCULAR STRUCTURES: Heart normal size. No evidence for failure. BONES: No acute findings. HARDWARE: None in the chest. OTHER: No other significant finding. IMPRESSION: NO ACUTE RADIOGRAPHIC FINDING IN THE CHEST. TECHNICAL DOCUMENTATION: JOB ID: [id number] [employer]- All Rights Reserved Reading location - IP/workstation name: [email or web address]
[2019-02-08 15:35] LABS: ALBUMIN 4.2 g/dL (3.5-5.0); ALKALINE PHOSPHATASE 81 U/L (38-126); ANION GAP 10 (5-19); ASPARTATE AMINO TRANSFERASE 17 U/L (14-36); BILIRUBIN,DIRECT 0.3 mg/dL (0.0-0.4); BILIRUBIN,TOTAL 0.6 mg/dL (0.2-1.3); BLOOD UREA NITROGEN 16 mg/dL (7-20); CALCIUM 9.5 mg/dL (8.4-10.2); CARBON DIOXIDE 26 mmol/L (22-30); CHLORIDE 109 mmol/L (98-107); GLUCOSE 135 mg/dL (75-110); TOTAL PROTEIN 6.9 g/dL (6.3-8.2)
[2019-02-08 15:47] LABS: NT PRO BNP 99 pg/mL (<125)
[2019-02-08 15:52] LABS: TROPONIN I < 0.012 ng/mL
--- NOTE | 2019-02-08 15:52 | ER Document Report ---
ED General - General Chief Complaint: Chest Pressure Stated Complaint: MEDICATION REFILL Time Seen by Provider: 02/08/19 14:23 Primary Care Provider: GOLDIE CARMONA PA-C [Primary Care Provider] - Follow up as needed TRAVEL OUTSIDE OF THE [place] IN LAST 30 DAYS: No - HPI Notes: Patient is a 48-year-old female who presents to the emergency department for evaluation. She initially states she is here primarily because she needs refills on her medicines. She just got her insurance back. She has an appointment with her doctor to get them, but she does not see them for a few weeks. On further questioning she states she had some pain in her chest. She states she gets this every couple of days, has for some time. She described it as a soreness in her left chest. It does not radiate. She denies any associated nausea, diaphoresis, near syncope, shortness of breath. She states is been trying to keep her blood sugars under control as best as possible. She states that the medications that they had her on when she lost her insurance and finally "stabilized her." - Related Data Allergies/Adverse Reactions: doxycycline [Doxycycline] Allergy (Severe, Verified 02/08/19 14:25) Anaphylaxis erythromycin base [Erythromycin Base] Allergy (Severe, Verified 02/08/19 14:25) Anaphylaxis latex [Latex] Allergy (Severe, Verified 02/08/19 14:25) Rash butorphanol tartrate [From Stadol] Allergy (Intermediate, Verified 02/08/19 14:25) Difficulty breathing mycins Allergy (Severe, Uncoded 02/08/19 14:25) Anaphylaxis Home Medications: Aspirin 81 mg daily, atorvastatin 40 mill grams daily, Claritin 10 mg daily, Klonopin 1 mg 3 times daily as needed, Plavix 75 mill grams daily, Cozaar 50 mg daily, isosorbide mononitrate 30 mg daily, Janumet XR mg 2 tabs twice daily, Protonix 40 mg daily, Percocet every 6 hours as needed, Ranexa 500 mg extended release twice a day, Robaxin 750 mg every 8 hours as needed, Zoloft 50 mg daily Past Medical History - General Information source: Patient - Social History Smoking Status: Never Smoker Family History: None Patient has suicidal ideation: No Patient has homicidal ideation: No - Past Medical History Cardiac Medical History: Reports: Hx Congestive Heart Failure, Hx Heart Attack - 2010, Hx Hypercholesterolemia, Hx Hypertension Pulmonary Medical History: Reports: Hx Asthma, Hx Bronchitis - Hx bronchitis x3 times, Hx Pneumonia Neurological Medical History: Reports: Hx Migraine Endocrine Medical History: Reports: Hx Diabetes Mellitus Type 2, Hx Hypothyroidism Renal/ Medical History: Reports: Hx Kidney Stones. Denies: Hx Peritoneal Dialysis GI Medical History: Reports: Hx Gastroesophageal Reflux Disease, Hx Ulcer Musculoskeletal Medical History: Reports Hx Arthritis, Reports Hx Musculoskeletal Trauma Skin Medical History: Reports Hx Eczema Psychiatric Medical History: Reports: Hx Anxiety - panic attacks, Hx Depression Past Surgical History: Reports: Hx Appendectomy, Hx Cardiac Catheterization, Hx Hysterectomy, Hx Orthopedic Surgery - right hip with hardware, Hx Rectal Surgery - Hemmorhoids, Hx Tonsillectomy, Hx Tubal Ligation - Immunizations Immunizations up to date: Yes Hx Diphtheria, Pertussis, Tetanus Vaccination: Yes Hx Pneumococcal Vaccination: 04/12/07 Review of Systems - Review of Systems Constitutional: No symptoms reported EENT: No symptoms reported Cardiovascular: See HPI Respiratory: No symptoms reported Gastrointestinal: No symptoms reported Genitourinary: No symptoms reported Musculoskeletal: No symptoms reported Skin: No symptoms reported Neurological/Psychological: No symptoms reported Physical Exam - Vital signs Vitals: Temp Pulse Resp BP Pulse Ox 97.9 F 75 16 159/98 H 97 02/08/19 13:54 02/08/19 13:54 02/08/19 13:54 02/08/19 13:54 02/08/19 13:54 - Notes Notes: Vital signs reviewed, please refer to chart. Head is normocephalic, atraumatic. Pupils equal round, reactive to light. Neck is supple without meningismus. Heart is regular rate and rhythm. Lungs are clear to auscultation bilaterally. Chest wall is tender to palpation. Abdomen is soft, nontender, normoactive merna wel sounds throughout. Extremities without cyanosis, clubbing. Posterior calves are nontender. Peripheral pulses are equal. Skin is warm and dry. Patient is awake, alert, neurological exam is nonfocal. Course - Re-evaluation Re-evalutation: 02/08/19 15:51 Patient presents emergency department for evaluation. She is primarily here for medication refill. Cardiac work-up was initiated because of her complaints of chest pain. We will send patient home after negative cardiac work-up with prescriptions for the majority of her medications. Will not be prescribing any controlled substances. She is to follow-up with her primary care provider as scheduled, return to the ED with worsening. - Vital Signs Vital signs: Temp Pulse Resp BP Pulse Ox 97.9 F 75 16 156/88 H 98 02/08/19 13:54 02/08/19 13:54 02/08/19 15:11 02/08/19 15:10 02/08/19 15:11 - Laboratory Result Diagrams: 02/08/19 14:49 02/08/19 14:49 Laboratory results interpreted by me: 02/08/19 14:49 Chloride 109 H Glucose 135 H - Diagnostic Test Radiology reviewed: Reports reviewed Radiology results interpreted by me: 02/08/19 15:51 Chest X-Ray 02/08/19 14:31 IMPRESSION: NO ACUTE RADIOGRAPHIC FINDING IN THE CHEST. - EKG Interpretation by Me Additional EKG results interpreted by me: 02/08/19 15:51 Sinus mechanism rate of 64 bpm. Left axis deviation. Nonspecific ST changes, but no acute ST elevation concerning for infarction. When compared to prior study, is actually improved from December 04, 2018. Discharge - Discharge Clinical Impression: Medication refill Chest pain Qualifiers: Chest pain type: unspecified Qualified Code(s): R07.9 - Chest pain, unspecified Condition: Stable Disposition: HOME, SELF-CARE Instructions: Chest Pain of Unclear Cause ([facility]), Chest Wall Pain ([facility]) Additional Instructions: Follow-up with your primary care provider as scheduled. Restart medications as previously prescribed. Return to the emergency department with worsening or new concerning symptoms of any sort. Referrals: GOLDIE CARMONA PA-C [Primary Care Provider] - Follow up as needed
[2019-02-08 16:16] VITALS: BP 156/96
--- NOTE | 2019-02-08 22:53 | EKG REPORT ---
SEVERITY:- ABNORMAL ECG - SINUS RHYTHM INFERIOR INFARCT, AGE INDETERMINATE CONSIDER ANTERIOR INFARCT : Confirmed by: Alda Kovacs MD 08-Feb-2019 22:52:58
== END 2019-02-08 16:15 | disposition home or self-care (01) ==
LOC: ER 13:47
DX: R07.9 Chest pain, unspecified (principal); I50.9 Heart failure, unspecified; I11.0 Hypertensive heart disease with heart failure; E78.00 Pure hypercholesterolemia, unspecified; E11.9 Type 2 diabetes mellitus without complications; Z87.442 Personal history of urinary calculi; Z91.040 Latex allergy status; Z88.3 Allergy status to other anti-infective agents; Z90.710 Acquired absence of both cervix and uterus; I25.2 Old myocardial infarction
CPT/HCPCS: 36415; 71046; 80053; 83880; 84484; 85025; 93005; 93010; 99283

== ENCOUNTER 2019-03-21 16:54 | Emergency (ER) | payer MEDICAID, OTHER ==
--- NOTE | 2019-03-21 17:22 | ER Document Report ---
ED Extremity Problem, Lower - General Chief Complaint: Leg Pain Stated Complaint: LEG PAIN Time Seen by Provider: 03/21/19 17:15 Primary Care Provider: GOLDIE CARMONA PA-C [Primary Care Provider] - Follow up as needed Mode of Arrival: Wheelchair Information source: Patient Notes: 48-year-old female presented to ED for complaint of right upper leg pain. She states last night she was trying to walk and also when she had sudden pain at the right upper lateral leg. She states she has had rods placed in and taken out of her right femur. She states it is red at the end of the surgical site that the pain is. She did not fall or do anything else that would have injured it at that time she was just walking. Patient is alert and oriented respirations regular nonlabored speaking in full sentences. TRAVEL OUTSIDE OF THE [place] IN LAST 30 DAYS: No - HPI Patient complains to provider of: Pain Location: Thigh - Right lateral Occurred: Yesterday Where: Home, Indoors Onset/Duration: Persistent Severity: Moderate Pain Level: 4 Recent injury: No Associated symptoms: Painful ambulation Exacerbated by: Movement, Walking Relieved by: Nothing - Related Data Allergies/Adverse Reactions: doxycycline [Doxycycline] Allergy (Severe, Verified 03/21/19 17:15) Anaphylaxis erythromycin base [Erythromycin Base] Allergy (Severe, Verified 03/21/19 17:15) Anaphylaxis latex [Latex] Allergy (Severe, Verified 03/21/19 17:15) Rash butorphanol tartrate [From Stadol] Allergy (Intermediate, Verified 03/21/19 17:15) Difficulty breathing mycins Allergy (Severe, Uncoded 03/21/19 17:15) Anaphylaxis Past Medical History - General Information source: Patient - Social History Smoking Status: Never Smoker Frequency of alcohol use: Occasional Drug Abuse: None. denies: Marijuana - CBD oil Occupation: None Lives with: Parents Family History: None Patient has suicidal ideation: No Patient has homicidal ideation: No - Past Medical History Cardiac Medical History: Reports: Hx Congestive Heart Failure, Hx Heart Attack - 2010, Hx Hypercholesterolemia, Hx Hypertension Pulmonary Medical History: Reports: Hx Asthma, Hx Bronchitis - Hx bronchitis x3 times, Hx Pneumonia EENT Medical History: Reports: None Neurological Medical History: Reports: Hx Migraine Endocrine Medical History: Reports: Hx Diabetes Mellitus Type 2, Hx Hypothyroidism Renal/ Medical History: Reports: Hx Kidney Stones Malignancy Medical History: Reports: Hx Cervical Cancer GI Medical History: Reports: Hx Gastroesophageal Reflux Disease, Hx Ulcer Musculoskeletal Medical History: Reports Hx Arthritis, Reports Hx Musculoskeletal Trauma Skin Medical History: Reports Hx Eczema Psychiatric Medical History: Reports: Hx Anxiety - panic attacks, Hx Depression Traumatic Medical History: Reports: Hx Fractures - Right femur toe Past Surgical History: Reports: Hx Appendectomy, Hx Cardiac Catheterization - X2, Hx Hysterectomy, Hx Orthopedic Surgery - right hip with hardware, Hx Rectal Surgery - Hemmorhoids, Hx Tonsillectomy, Hx Tubal Ligation - Immunizations Immunizations up to date: Yes Hx Diphtheria, Pertussis, Tetanus Vaccination: Yes Hx Pneumococcal Vaccination: 04/12/07 Review of Systems - Review of Systems Constitutional: No symptoms reported EENT: No symptoms reported Cardiovascular: No symptoms reported Respiratory: No symptoms reported Gastrointestinal: No symptoms reported Genitourinary: No symptoms reported Female Genitourinary: No symptoms reported Musculoskeletal: Other - Right thigh pain Skin: No symptoms reported Hematologic/Lymphatic: No symptoms reported Neurological/Psychological: No symptoms reported -: Yes All other systems reviewed and negative Physical Exam - Vital signs Vitals: BP 136/76 H 03/21/19 16:54 Interpretation: Normal - General General appearance: Appears well, Alert - HEENT Head: Normocephalic, Atraumatic Eyes: Normal Pupils: PERRL - Respiratory Respiratory status: No respiratory distress Chest status: Nontender Breath sounds: Normal Chest palpation: Normal - Cardiovascular Rhythm: Regular Heart sounds: Normal auscultation Murmur: No - Abdominal Inspection: Normal Distension: No distension Bowel sounds: Normal Tenderness: Nontender Organomegaly: No organomegaly - Back Back: Normal, Nontender - Extremities General upper extremity: Normal inspection, Nontender, Normal color, Normal ROM, Normal temperature General lower extremity: Normal inspection, Normal color, Normal ROM, Normal temperature, Normal weight bearing. No: Blossom's sign Thigh: Tender, Other - Scarring from previous surgeries no bruising no swelling no redness to the area Knee: Normal Calf: Normal Ankle: Normal Foot: Normal - Neurological Neuro grossly intact: Yes Cognition: Normal Orientation: AAOx4 [place] Coma Scale Eye Opening: Spontaneous [place] Coma Scale Verbal: Oriented Velasquez Coma Scale Motor: Obeys Commands Velasquez Coma Scale Total: 15 Speech: Normal Motor strength normal: LUE, RUE, LLE, RLE Sensory: Normal - Psychological Associated symptoms: Normal affect, Normal mood - Skin Skin Temperature: Warm Skin Moisture: Dry Skin Color: Normal Course - Re-evaluation Re-evalutation: 03/21/19 21:33 Chest x-ray with patient. Patient was given instructions on Tylenol lidocaine patches or lidocaine cream. Patient was treated with Tylenol and lidocaine patch in the emergency room. Patient was instructed to follow-up with primary care and/or orthopedics. Patient verbalized understanding and agreement treatment plan and patient was discharged home. - Vital Signs Vital signs: Temp Pulse Resp BP Pulse Ox 97.5 F 78 18 135/95 H 98 03/21/19 17:15 03/21/19 19:32 03/21/19 19:32 03/21/19 19:32 03/21/19 19:32 - Diagnostic Test Radiology reviewed: Image reviewed, Reports reviewed Discharge - Discharge Clinical Impression: Pain in right femur Condition: Stable Disposition: HOME, SELF-CARE Additional Instructions: Chronic Pain Control Stress, inactivity, and depression make pain more severe regardless of the cause of the pain. Stress and poor physical condition can cause pain such as headaches and backache. Relaxation: Rest in a quiet place with your eyes closed for 20 minutes twice daily. Concentrate on a pleasant image, or simply "feel" your breathing. Clear your mind. Stress management: Deal with your "stressors." Either take action, or eliminate the stressor from your life. Don't let things hang over you. Accept those things you can't change. Nutrition: Eat small, balanced meals -- don't skip, don't overeat. Meals should be high-carbohydrate, low-sugar, low-fat. Exercise: Exercise helps painful conditions and eases stress. Get 30 minutes of moderate exercise, five days a week. Do an activity that does not flare your pain. Precautions: Pain which continues to disrupt daily activities, or which changes in nature, requires a medical evaluation. Pain Clinic referral is available. We do not manage chronic pain in the Emergency Department. We will try to appropriately help you through an acute flare of your chronic painful condition, but for on-going chronic pain that does not improve, you will need to see your private doctor or bait painter. We do not provide repeated medication management of chronic painful conditions. If you wish, we can provide the name of local pain management physicians. Acetaminophen Acetaminophen may be taken for pain relief or fever control. It's much safer than aspirin, offering a wider range of "safe" dosages. It is safe during . Some brand names are Tylenol, Panadol, Datril, Anacin 3, Tempra, and Liquiprin. Acetaminophen can be repeated every four hours. The following are maximum recommended dosages: WEIGHT Dose Drops Elixir Chewable(80mg) (LBS.) drprs=droppers tsp=teaspoon 6 40 mg .4 ml (1/2) 6-11 80 mg .8 ml (full) 1/2 tsp 1 tab 12-16 120 mg 1 1/2 drprs 3/4 tsp 1 1/2 tabs 17-23 160 mg 2 drprs 1 tsp 2 tabs 24-30 240 mg 3 drprs 1 1/2 tsp 3 tabs 30-35 320 mg 2 tsp 4 tabs 36-41 360 mg 2 1/4 tsp 4 1/2 tabs 42-47 400 mg 2 1/2 tsp 5 tabs 48-53 480 mg 3 tsp 6 tabs 54-59 520 mg 3 1/4 tsp 6 1/2 tabs 60-64 560 mg 3 1/2 tsp 7 tabs 65-70 600 mg 3 3/4 tsp 7 1/2 tabs 71-76 640 mg 4 tsp 8 tabs 77-82 720 mg 4 1/2 tsp 9 tabs 83-88 800 mg 5 tsp 10 tabs >89 pounds or adults 650 mg to 900 mg Acetaminophen can be repeated every four hours. Maximum daily dose not to exceed 4000 mg. These maximum recommended dosages are slightly higher than the dosages written on the product container, but these dosages are very safe and well below the toxic dosage for acetaminophen. You have been given a Lidoderm patch at this time. Please leave that on for 12 hours and then remove it. You can use lidocaine patches [id number] or Lidoderm cream according to the instructions on the present package. I have greeted and performed a rapid initial assessment of this patient. A comprehensive ED assessment and evaluation of the patient, analysis of test results and completion of medical decision making process will be conducted by an additional ED providers. Forms: Elevated Blood Pressure Referrals: GOLDIE CARMONA PA-C [Primary Care Provider] - Follow up as needed
--- NOTE | 2019-03-21 18:45 | RADIOLOGY REPORT (SQ) ---
EXAM DESCRIPTION: FEMUR RIGHT COMPLETED DATE/TIME: 03/21/2019 6:16 pm REASON FOR STUDY: pain no new injury COMPARISON: None. NUMBER OF VIEWS: Two views. TECHNIQUE: Two radiographic images acquired of the right femur to include hip and knee in at least o ne projection. LIMITATIONS: None. FINDINGS: MINERALIZATION: Normal. BONES: No acute fracture. The lower femoral diaphysis is expanded in the AP dimension with some alberto ical thickening and smooth periosteal reaction, possibly related to remote healed fracture, correlate with clinical history. SOFT TISSUES: No obvious swelling or foreign body. OTHER: No other significant finding. IMPRESSION: No acute fracture. The lower femoral diaphysis is expanded in the AP dimension with ambika e cortical thickening and smooth periosteal reaction, possibly related to remote healed fracture, cor relate with clinical history. Consider additional evaluation if there is no correlating history as n o comparison images are available. TECHNICAL DOCUMENTATION: JOB ID: [id number] 2010 [employer]- All Rights Reserved Reading location - IP/workstation name: [email or web address]
[2019-03-21] MEDS ORDERED: LIDOCAINE 5% (700 MG) TRANSDERMAL ADH..PATCH TP ONE (18:58)
[2019-03-21] MEDS ORDERED: ACETAMINOPHEN 325 MG TABLET PO ONE (18:58)
[2019-03-21 19:34] VITALS: BP 135/95
== END 2019-03-21 19:34 | disposition home or self-care (01) ==
LOC: ER 16:54
DX: M79.651 Pain in right thigh (principal); M79.604 Pain in right leg; Z98.890 Other specified postprocedural states; I50.9 Heart failure, unspecified; I25.2 Old myocardial infarction; I11.0 Hypertensive heart disease with heart failure; J45.909 Unspecified asthma, uncomplicated; E11.9 Type 2 diabetes mellitus without complications
CPT/HCPCS: 99283

== ENCOUNTER → 2019-04-21 | Outpatient (CLI) | payer MEDICAID, MEDICARE ==
--- NOTE | 2019-04-21 13:59 | WOMENS IMAGING REPORT ---
EXAM DESCRIPTION: 3D SCREENING MAMMO BILAT COMPLETED DATE/TIME: 04/21/2019 9:42 am REASON FOR STUDY: Z12.31 3D SCREENING MAMMOGRAM Z12.31 ENCNTR SCREEN MAMMOGRAM FOR MALIGNANT NEOPLA SM OF REIN[place] COMPARISON: None. EXAM PARAMETERS: Standard craniocaudal and mediolateral oblique views of each breast recorded using digital acquisition and breast tomosynthesis. Read with the assistance of CAD. .[facility] - [place] [employer]cle [employer] Technician Version 9.2 LIMITATIONS: None. FINDINGS: RIGHT BREAST MASSES: No suspicious masses. CALCIFICATIONS: No new or suspicious calcifications. ARCHITECTURAL DISTORTION: None. ASYMMETRY: None noted. OTHER: No other significant findings. LEFT BREAST MASSES: There is a mass in the central posterior left breast. CALCIFICATIONS: No new or suspicious calcifications. ARCHITECTURAL DISTORTION: None. ASYMMETRY: None noted. OTHER: No other significant findings. IMPRESSION: Mass in the left breast. Further evaluation with diagnostic mammogram and possible ultr asound recommended. 0 Incomplete: Needs Additional Imaging Evaluation and/or prior Mammograms for Comparison. BREAST DENSITY: a. The breasts are almost entirely fatty. BIRAD: ASSESSMENT: 0 Incomplete: Needs Additional Imaging Evaluation and/or prior Mammograms for C omparison. RECOMMENDATION: RECOMMENDED FOLLOW-UP: Further evaluation with diagnostic mammogram and possible ult rasound. The patient will be contacted for additional imaging. COMMENT: The patient has been notified of the results by letter per MQSA requirements. Additional no tification policies are in place for contacting patient with suspicious or incomplete findings. Quality ID #225: The [place] [employer] [employer] recommends an annual screening mammogram for women aged 40 years or over. This facility utilizes a reminder system to ensure that all patients receive reminder letters, and/or direct phone calls for appointments. This includes reminders for routine scr eening mammograms, diagnostic mammograms, or other Breast Imaging Interventions when appropriate. Th is patient will be placed in the appropriate reminder system. TECHNICAL DOCUMENTATION: FINDING NUMBER: (1) ASSESSMENT: (1) JOB ID: [id number] [employer]- All Rights Reserved Reading location - IP/workstation name: [email or web address]
== END ==
LOC: WI 10:00
PROVIDERS: ATTEND Physician Assistant
DX: Z12.31 Encounter for screening mammogram for malignant neoplasm of breast (principal); N63.42 Unspecified lump in left breast, subareolar
CPT/HCPCS: 77063; 77067

== ENCOUNTER → 2019-05-05 | Outpatient (CLI) | payer MEDICAID ==
--- NOTE | 2019-05-05 10:06 | WOMENS IMAGING REPORT ---
EXAM DESCRIPTION: LEFT DIAGNOSTIC MAMMO W/CAD; U/S BREAST UNILATERAL, COMPL COMPLETED DATE/TIME: 05/05/2019 9:12 am; 05/05/2019 9:44 am REASON FOR STUDY: LEFT BREAST MASS N63.20; N63.20 LEFT BREAST R92.2 INCONCLUSIVE MAMMOGRAM COMPARISON: 04/21/2019. EXAM PARAMETERS: True lateral and spot compression MLO and CC images acquired. LIMITATIONS: None. FINDINGS: BREAST LATERALITY: left MASSES: There is a persistent mass in the deep central breast. Fairly smooth margins. CALCIFICATIONS: No new or suspicious calcifications. ARCHITECTURAL DISTORTION: None. ASYMMETRY: None noted. OTHER: No other significant findings. BREAST ULTRASOUND: TECHNIQUE: Static and dynamic grayscale images acquired of the entire left breast. Selected color Dop pler images recorded. ELASTOGRAPHY PERFORMED: No. LIMITATIONS: None. FINDINGS: MASS: No mass identified. Normal glandular tissue. ELASTOGRAPHY CHARACTERISTICS: Not applicable. OTHER: No other significant finding. IMPRESSION: Persistent mass in the breast on mammography. The mass was not visualized on ultrasound . BREAST DENSITY: a. The breasts are almost entirely fatty. BIRAD: ASSESSMENT: 0 Incomplete: Needs additional imaging evaluation and/or prior mammograms for co mparison. RECOMMENDATION: RECOMMENDED FOLLOW UP: Birads 0: Mammographic and Ultrasound imaging did not solve t he problem. SPECIFIC INTERVENTION/IMAGING/CONSULTATION RECOMMENDED:Routine breast imaging is inconclusive. Breast MRI may be helpful. COMMUNICATION:The imaging findings were not discussed with the patient. Her referring provider has be en notified of the findings. COMMENT: The patient has been notified of the results by letter per [place] requirements. Additional no tification policies are in place for contacting patient with suspicious or incomplete findings. Quality ID #225: The [employer] recommends an annual screening mammogram for women aged 40 years or over. This facility utilizes a reminder system to ensure that all patients receive reminder letters, and/or direct phone calls for appointments. This includes reminders for routine scr eening mammograms, diagnostic mammograms, or other Breast Imaging Interventions when appropriate. Th is patient will be placed in the appropriate reminder system. TECHNICAL DOCUMENTATION: FINDING NUMBER: (1) ASSESSMENT: (1) JOB ID: [id number] [employer]- All Rights Reserved Reading location - IP/workstation name: [email or web address]
== END ==
LOC: WI 10:11
PROVIDERS: ATTEND Physician Assistant
DX: N63.42 Unspecified lump in left breast, subareolar (principal)
CPT/HCPCS: 76641; 77065

== ENCOUNTER 2019-09-03 13:16 | Emergency (ER) | payer MEDICARE, MEDICAID ==
[2019-09-03] MEDS ORDERED: ASPIRIN 81 MG TABLET, CHEWABLE PO ONE (13:50)
[2019-09-03] MEDS ORDERED: MORPHINE SULFATE 10 MG/ML INJ IV ONE (13:51)
--- NOTE | 2019-09-03 13:52 | ER Document Report ---
ED Cardiac - General Chief Complaint: Chest Pain Stated Complaint: CHEST PAIN Time Seen by Provider: 09/03/19 13:38 Primary Care Provider: JAMEE MANZANO PA-C [Primary Care Provider] - Follow up as needed Mode of Arrival: Ambulatory Information source: Patient Notes: 48-year-old female with past medical history significant for hyperlipidemia, diabetes, asthma, idiopathic cardiomyopathy, takayasai arteritis, CHF presents the emergency room complaining of intermittent chest pain for the past 3 days. States it got worse today. States she took 2 sublingual nitro without relief. Describes it as a sharp stabbing pain in the middle of her chest. Did take 1 baby aspirin this morning. Rates her pain at 6 out of 10. Denies any shortness of breath or difficulty breathing. Denies any diaphoresis. States that her kitchen hand has stopped several of her medications but states she is taking her diabetic, cholesterol and cardiac medications. States she has had a negative stress test since January. She does admit to injection fracture of 45%. Does have an outpatient naval police coxswain. TRAVEL OUTSIDE OF THE [place] IN LAST 30 DAYS: No - Related Data Allergies/Adverse Reactions: doxycycline [Doxycycline] Allergy (Severe, Verified 03/21/19 17:15) Anaphylaxis erythromycin base [Erythromycin Base] Allergy (Severe, Verified 03/21/19 17:15) Anaphylaxis latex [Latex] Allergy (Severe, Verified 03/21/19 17:15) Rash butorphanol tartrate [From Stadol] Allergy (Intermediate, Verified 03/21/19 17:15) Difficulty breathing mycins Allergy (Severe, Uncoded 03/21/19 17:15) Anaphylaxis Past Medical History - General Information source: Patient - Social History Smoking Status: Former Smoker Frequency of alcohol use: Occasional Drug Abuse: None Family History: None - Past Medical History Cardiac Medical History: Reports: Hx Congestive Heart Failure, Hx Heart Attack - 2010, Hx Hypercholesterolemia, Hx Hypertension Pulmonary Medical History: Reports: Hx Asthma, Hx Bronchitis - Hx bronchitis x3 times, Hx Pneumonia Neurological Medical History: Reports: Hx Migraine Endocrine Medical History: Reports: Hx Diabetes Mellitus Type 2, Hx Hypothyroidism Renal/ Medical History: Reports: Hx Kidney Stones Malignancy Medical History: Reports: Hx Cervical Cancer GI Medical History: Reports: Hx Gastroesophageal Reflux Disease, Hx Ulcer Musculoskeletal Medical History: Reports Hx Arthritis, Reports Hx Muscu loskeletal Trauma Skin Medical History: Reports Hx Eczema Psychiatric Medical History: Reports: Hx Anxiety - panic attacks, Hx Depression Traumatic Medical History: Reports: Hx Fractures - Right femur toe Past Surgical History: Reports: Hx Appendectomy, Hx Cardiac Catheterization - X2, Hx Hysterectomy, Hx Orthopedic Surgery - right hip with hardware, Hx Rectal Surgery - Hemmorhoids, Hx Tonsillectomy, Hx Tubal Ligation - Immunizations Immunizations up to date: Yes Hx Diphtheria, Pertussis, Tetanus Vaccination: Yes Hx Pneumococcal Vaccination: 04/12/07 Review of Systems - Review of Systems Constitutional: No symptoms reported EENT: No symptoms reported Cardiovascular: Chest pain Respiratory: denies: Cough, Hurts to breathe, Short of breath, Wheezing Gastrointestinal: No symptoms reported Musculoskeletal: No symptoms reported Skin: No symptoms reported Neurological/Psychological: No symptoms reported -: Yes All other systems reviewed and negative Physical Exam - Vital signs Vitals: Temp 98.1 F 09/03/19 13:41 - General General appearance: Appears well, Alert In distress: Mild - Respiratory Respiratory status: No respiratory distress Chest status: Nontender Breath sounds: Normal Chest palpation: Normal - Cardiovascular Rhythm: Regular Heart sounds: Normal auscultation Murmur: No - Abdominal Inspection: Normal Distension: No distension Bowel sounds: Normal Tenderness: Nontender Organomegaly: No organomegaly - Neurological Neuro grossly intact: Yes Cognition: Normal Orientation: AAOx4 [place] Coma Scale Eye Opening: Spontaneous Velasquez Coma Scale Verbal: Oriented [place] Coma Scale Motor: Obeys Commands [place] Coma Scale Total: 15 Speech: Normal Motor strength normal: LUE, RUE, LLE, RLE Sensory: Normal - Skin Skin Temperature: Warm Skin Moisture: Dry Skin Color: Normal Course - Re-evaluation Re-evalutation: 09/03/19 14:24 Heart score = 3 09/03/19 14:30 09/03/19 15:41 Patient is resting comfortably she is currently pain-free. Aware labs are still pending. 09/03/19 18:45 Patient remains pain-free. Reviewed all labs, EKG, troponins x2 are within normal limits. Patient would like to be discharged home. She does have a naval police coxswain she can follow-up with tomorrow. States she had a negative stress test since EF of 45% she was counseled on the importance of following up with her naval police coxswain she is to call them tomorrow. Continue current medications. She was given strict return to emergency room guidelines. Return for any new or worsening symptoms. All questions were answered. Patient verbalized understanding and agrees a plan of care. - Vital Signs Vital signs: Temp Pulse Resp BP Pulse Ox 98.1 F 79 20 143/80 H 97 09/03/19 13:42 09/03/19 13:42 09/03/19 18:01 09/03/19 18:01 09/03/19 18:01 - Laboratory Result Diagrams: 09/03/19 15:00 09/03/19 15:00 Laboratory results interpreted by me: 09/03/19 09/03/19 15:00 15:00 Hgb 16.0 H Sodium 136.7 L Creatinine 0.50 L Glucose 228 H - Diagnostic Test Radiology reviewed: Reports reviewed - EKG Interpretation by Me Additional EKG results interpreted by me: 09/03/19 14:21 EKG interpreted by ER physician Dr. Pickernig Discharge - Discharge Clinical Impression: Chest pain Qualifiers: Chest pain type: unspecified Qualified Code(s): R07.9 - Chest pain, unspecified Condition: Stable Disposition: HOME, SELF-CARE Instructions: Chest Pain of Unclear Cause ([facility]) Additional Instructions: Continue your current medications. Call your naval police coxswain tomorrow for an outpatient follow-up appointment. Return for any new or worsening symptoms. Referrals: JAMEE MANZANO PA-C [Primary Care Provider] - Follow up as needed
--- NOTE | 2019-09-03 14:33 | RADIOLOGY REPORT (SQ) ---
EXAM DESCRIPTION: CHEST SINGLE VIEW IMAGES COMPLETED DATE/TIME: 09/03/2019 2:20 pm REASON FOR STUDY: chest pain COMPARISON: 02/08/2019. EXAM PARAMETERS: NUMBER OF VIEWS: One view. TECHNIQUE: Single frontal radiographic view of the chest acquired. RADIATION DOSE: NA LIMITATIONS: None. FINDINGS: LUNGS AND PLEURA: No opacities, masses or pneumothorax. No pleural effusion. MEDIASTINUM AND HILAR STRUCTURES: No masses. Contour normal. HEART AND VASCULAR STRUCTURES: Heart normal in size. Normal vasculature. BONES: No acute findings. Degenerative changes in the spine. HARDWARE: None in the chest. OTHER: No other significant finding. IMPRESSION: NO ACUTE RADIOGRAPHIC FINDING IN THE CHEST. TECHNICAL DOCUMENTATION: JOB ID: [id number] 2010 [employer]- All Rights Reserved Reading location - IP/workstation name: [email or web address]
[2019-09-03 15:26] LABS: ABSOLUTE BASOPHILS # (AUTO) 0.1 10^3/uL (0.0-0.2); ABSOLUTE EOSINOPHILS # (AUTO) 0.2 10^3/uL (0.0-0.6); ABSOLUTE MONOCYTES (AUTO) 0.6 10^3/uL (0.1-1.4); ABSOLUTE NEUT (AUTO) 4.1 10^3/uL (1.7-8.2); BASOPHILS % (AUTO) 1.1 % (0-2); EOSINOPHILS % (AUTO) 2.8 % (0-6); HEMATOCRIT 45.8 % (36.0-47.0); LYMPHOCYTES % (AUTO) 37.3 % (13-45); MEAN CORPUSCULAR HEMOGLOBIN 31.2 pg (27.0-33.4); MEAN CORPUSCULAR VOLUME 89 fl (80-97); MONOCYTES % (AUTO) 7.9 % (3-13); PLATELET COUNT 259 10^3/uL (150-450); RED BLOOD COUNT 5.15 10^6/uL (3.72-5.28); RED CELL DISTRIBUTION WIDTH 13.9 % (11.5-14.0); SEGMENTED NEUTROPHILS % (AUTO) 50.9 % (42-78); TOTAL CELLS COUNTED % (AUTO) 100 %
[2019-09-03 15:43] LABS: ALKALINE PHOSPHATASE 97 U/L (38-126); ANION GAP 5 (5-19); ASPARTATE AMINO TRANSFERASE 21 U/L (14-36); BILIRUBIN,TOTAL 0.6 mg/dL (0.2-1.3); BLOOD UREA NITROGEN 14 mg/dL (7-20); CALCIUM 9.7 mg/dL (8.4-10.2); CARBON DIOXIDE 29 mmol/L (22-30); CHLORIDE 103 mmol/L (98-107); CREATINE KINASE 58 U/L (30-135); GLUCOSE 228 mg/dL (75-110); POTASSIUM 4.5 mmol/L (3.6-5.0); TOTAL PROTEIN 6.5 g/dL (6.3-8.2)
[2019-09-03 15:56] LABS: TROPONIN I < 0.012 ng/mL
[2019-09-03 19:17] VITALS: BP 154/89
--- NOTE | 2019-09-03 20:53 | EKG REPORT ---
SEVERITY:- ABNORMAL ECG - SINUS RHYTHM INFERIOR INFARCT, AGE INDETERMINATE CONSIDER ANTERIOR INFARCT : Confirmed by: Alda Kovacs MD 03-Sep-2019 20:53:22
== END 2019-09-03 19:05 | disposition home or self-care (01) ==
LOC: ER 13:16
DX: R07.9 Chest pain, unspecified (principal); E11.9 Type 2 diabetes mellitus without complications; J45.909 Unspecified asthma, uncomplicated; E78.00 Pure hypercholesterolemia, unspecified; I10 Essential (primary) hypertension; I25.2 Old myocardial infarction; Z79.899 Other long term (current) drug therapy; Z87.891 Personal history of nicotine dependence; Z87.892 Personal history of anaphylaxis; Z88.1 Allergy status to other antibiotic agents; Z91.040 Latex allergy status; Z88.6 Allergy status to analgesic agent; Z88.5 Allergy status to narcotic agent
CPT/HCPCS: 93005; 99285; 96374; 36415; 82553; 82550; 85025; 80053; 84484; 71045; 93010; A9270; J2270

== ENCOUNTER 2020-05-09 13:02 | Emergency (ER) | payer MEDICARE, MEDICAID ==
[2020-05-09 14:54] LABS: ABSOLUTE EOSINOPHILS # (AUTO) 0.1 10^3/uL (0.0-0.6); ABSOLUTE LYMPHOCYTES (AUTO) 3.4 10^3/uL (0.5-4.7); ABSOLUTE MONOCYTES (AUTO) 0.7 10^3/uL (0.1-1.4); ABSOLUTE NEUT (AUTO) 4.9 10^3/uL (1.7-8.2); BASOPHILS % (AUTO) 0.5 % (0-2); EOSINOPHILS % (AUTO) 1.4 % (0-6); HEMATOCRIT 45.2 % (36.0-47.0); HEMOGLOBIN 14.9 g/dL (12.0-15.5); LYMPHOCYTES % (AUTO) 36.8 % (13-45); MEAN CORPUSCULAR HEMOGLOBIN 29.7 pg (27.0-33.4); MEAN CORPUSCULAR VOLUME 90 fl (80-97); MONOCYTES % (AUTO) 7.9 % (3-13); PLATELET COUNT 290 10^3/uL (150-450); RED BLOOD COUNT 5.02 10^6/uL (3.72-5.28); RED CELL DISTRIBUTION WIDTH 13.5 % (11.5-14.0); SEGMENTED NEUTROPHILS % (AUTO) 53.4 % (42-78); TOTAL CELLS COUNTED % (AUTO) 100 %; WHITE BLOOD COUNT 9.1 10^3/uL (4.0-10.5)
[2020-05-09 15:16] LABS: ALBUMIN 4.5 g/dL (3.5-5.0); ALKALINE PHOSPHATASE 55 U/L (38-126); ANION GAP 8 (5-19); ASPARTATE AMINO TRANSFERASE 24 U/L (14-36); BILIRUBIN,DIRECT 0.2 mg/dL (0.0-0.4); BILIRUBIN,TOTAL 0.6 mg/dL (0.2-1.3); BLOOD UREA NITROGEN 25 mg/dL (7-20); CALCIUM 9.9 mg/dL (8.4-10.2); CARBON DIOXIDE 28 mmol/L (22-30); CHLORIDE 103 mmol/L (98-107); GLUCOSE 155 mg/dL (75-110); POTASSIUM 4.8 mmol/L (3.6-5.0); TOTAL PROTEIN 6.8 g/dL (6.3-8.2)
--- NOTE | 2020-05-09 16:23 | RADIOLOGY REPORT (SQ) ---
EXAM DESCRIPTION: CHEST SINGLE VIEW IMAGES COMPLETED DATE/TIME: 05/09/2020 4:12 pm REASON FOR STUDY: chest pain COMPARISON: AP view of the chest from 09/03/2019. EXAM PARAMETERS: NUMBER OF VIEWS: One view. TECHNIQUE: An AP view of the chest was obtained. RADIATION DOSE: NA LIMITATIONS: None. FINDINGS: LUNGS AND PLEURA: No consolidation, pleural effusion or pneumothorax. MEDIASTINUM AND HILAR STRUCTURES: No mediastinal or hilar contour abnormality. HEART AND VASCULAR STRUCTURES: The cardiac silhouette and pulmonary vasculature are within normal correa its. BONES: No acute findings. HARDWARE: None in the chest. OTHER: No other finding. IMPRESSION: No acute cardiopulmonary process. TECHNICAL DOCUMENTATION: JOB ID: [id number] 2010 [employer]- All Rights Reserved Reading location - IP/workstation name: [email or web address]
--- NOTE | 2020-05-09 16:44 | EKG REPORT ---
SEVERITY:- BORDERLINE ECG - SINUS RHYTHM BORDERLINE LEFT AXIS DEVIATION CONSIDER INFERIOR INFARCT : Confirmed by: Alex Wetzel MD 09-May-2020 16:43:41
--- NOTE | 2020-05-09 17:17 | ER Document Report ---
ED Cardiac - General Chief Complaint: Chest Wall Pain Stated Complaint: CHEST PAIN Time Seen by Provider: 05/09/20 13:54 Primary Care Provider: JAMEE MANZANO PA-C [Primary Care Provider] - Follow up as needed Mode of Arrival: Ambulatory Information source: Patient TRAVEL OUTSIDE OF THE [place] IN LAST 30 DAYS: No - HPI Notes: Patient comes in complaining of chest pain for 3 days. States been moderate and constant. Nothing makes it better or worse. No significant radiation of the pain. She states it feels similar to when she has had bronchitis in the past as well as it feels similar to when she has had a pulled chest muscle in the past. She states she has been lifting beds to help her mother move and feels he may have pulled a muscle doing this. She also states that she does have a cardiac history and has a cardiac doctor Dr. Muñoz. She has an appointment with Dr. Muñoz a week from tomorrow. - Related Data Allergies/Adverse Reactions: doxycycline [Doxycycline] Allergy (Severe, Verified 05/09/20 14:21) Anaphylaxis erythromycin base [Erythromycin Base] Allergy (Severe, Verified 05/09/20 14:21) Anaphylaxis latex [Latex] Allergy (Severe, Verified 05/09/20 14:21) Rash butorphanol tartrate [From Stadol] Allergy (Intermediate, Verified 05/09/20 14:21) Difficulty breathing mycins Allergy (Severe, Uncoded 05/09/20 14:21) Anaphylaxis Home Medications: Percocet, Percocet, Losartan, Metformin, Asa 81mg Daily, Flexeril Past Medical History - General Information source: Patient - Social History Smoking Status: Former Smoker Chew tobacco use (# tins/day): No Frequency of alcohol use: None Drug Abuse: None Family History: None Patient has homicidal ideation: No - Past Medical History Cardiac Medical History: Reports: Hx Congestive Heart Failure, Hx Heart Attack - 2010, Hx Hypercholesterolemia, Hx Hypertension Pulmonary Medical History: Reports: Hx Asthma, Hx Bronchitis - Hx bronchitis x3 times, Hx Pneumonia Neurological Medical History: Reports: Hx Migraine Endocrine Medical History: Reports: Hx Diabetes Mellitus Type 2, Hx Hypothyroidism Renal/ Medical History: Reports: Hx Kidney Stones Malignancy Medical History: Reports: Hx Cervical Cancer GI Medical History: Reports: Hx Gastroesophageal Reflux Disease, Hx Ulcer Musculoskeletal Medical History: Reports Hx Arthritis, Reports Hx Musculoskeletal Trauma Skin Medical History: Reports Hx Eczema Psychiatric Medical History: Reports: Hx Anxiety - panic attacks, Hx Depression Traumatic Medical History: Reports: Hx Fractures - Right femur toe Past Surgical History: Reports: Hx Appendectomy, Hx Cardiac Catheterization - X2, Hx Hysterectomy, Hx Orthopedic Surgery - right hip with hardware, Hx Rectal Surgery - Hemmorhoids, Hx Tonsillectomy, Hx Tubal Ligation - Immunizations Immunizations up to date: Yes Hx Diphtheria, Pertussis, Tetanus Vaccination: Yes Hx Pneumococcal Vaccination: 04/12/07 Review of Systems - Review of Systems Constitutional: denies: Chills, Fever Cardiovascular: Chest pain. denies: Palpitations Respiratory: denies: Cough, Short of breath -: Yes All other systems reviewed and negative Physical Exam - Vital signs Vitals: Temp Pulse Resp BP Pulse Ox 97.8 F 77 20 120/77 98 05/09/20 13:29 05/09/20 13:29 05/09/20 13:29 05/09/20 13:29 05/09/20 13:29 Interpretation: Normal - General General appearance: Appears well, Alert - HEENT Head: Normocephalic, Atraumatic Eyes: Normal Pupils: PERRL - Respiratory Respiratory status: No respiratory distress Chest status: Nontender Breath sounds: Normal Chest palpation: Normal - Cardiovascular Rhythm: Regular Heart sounds: Normal auscultation Murmur: No - Abdominal Inspection: Normal Distension: No distension Bowel sounds: Normal Tenderness: Nontender Organomegaly: No organomegaly - Back Back: Normal, Nontender - Extremities General upper extremity: Normal inspection, Nontender, Normal color, Normal ROM, Normal temperature General lower extremity: Normal inspection, Nontender, Normal color, Normal ROM, Normal temperature, Normal weight bearing. No: Blossom's sign - Neurological Neuro grossly intact: Yes Cognition: Normal Orientation: AAOx4 [place] Coma Scale Eye Opening: Spontaneous [place] Coma Scale Verbal: Oriented [place] Coma Scale Motor: Obeys Commands [place] Coma Scale Total: 15 Speech: Normal Motor strength normal: LUE, RUE, LLE, RLE Sensory: Normal - Psychological Associated symptoms: Normal affect, Normal mood - Skin Skin Temperature: Warm Skin Moisture: Dry Skin Color: Normal Course - Re-evaluation Re-evalutation: 05/09/20 17:15 Patient presents with chest pain. She has negative enzymes as well as negative EKG. She has no acute ischemic changes on EKG. The pain has been going on for 3 days and sounds atypical and does some most consistent with a pulled chest wall muscle especially given history of recent heavy lifting. She has follow-up arranged with her biomedical electronics technician. - Vital Signs Vital signs: Temp Pulse Resp BP Pulse Ox 97.8 F 77 20 120/77 98 05/09/20 13:29 05/09/20 13:29 05/09/20 13:29 05/09/20 13:29 05/09/20 13:29 - Laboratory Results Result Diagrams: 05/09/20 14:32 05/09/20 14:32 Laboratory Results Interpreted: 05/09/20 14:32 BUN 25 H Glucose 155 H Critical Laboratory Results Reviewed: No Critical Results - Radiology Results Critical Radiology Results Reviewed: No Critical Results - EKG Interpretation by Al EKG shows normal: Sinus rhythm Rate: Normal - 80 Rhythm: NSR [place]/QRS: Left axis deviation Discharge - Discharge Clinical Impression: Chest wall pain Condition: Stable Disposition: HOME, SELF-CARE Instructions: Chest Wall Pain ([facility]) Forms: Return to Work Referrals: JAMEE MANZANO PA-C [Primary Care Provider] - Follow up as needed DAVID MUÑOZ MD [ACTIVE STAFF] - 05/17/20 (Please follow-up as scheduled on May 17)
[2020-05-09 17:18] VITALS: BP 124/99
== END 2020-05-09 17:31 | disposition home or self-care (01) ==
LOC: ER 13:02
DX: R07.89 Other chest pain (principal); I11.0 Hypertensive heart disease with heart failure; I50.9 Heart failure, unspecified; I25.2 Old myocardial infarction; J45.909 Unspecified asthma, uncomplicated; E11.9 Type 2 diabetes mellitus without complications; Z85.41 Personal history of malignant neoplasm of cervix uteri; Z79.891 Long term (current) use of opiate analgesic; Z79.899 Other long term (current) drug therapy; Z79.84 Long term (current) use of oral hypoglycemic drugs; Z79.82 Long term (current) use of aspirin; Z87.891 Personal history of nicotine dependence; Z87.892 Personal history of anaphylaxis; Z88.1 Allergy status to other antibiotic agents; Z91.040 Latex allergy status; Z88.6 Allergy status to analgesic agent; Z88.5 Allergy status to narcotic agent
CPT/HCPCS: 36415; 71045; 80053; 84484; 85025; 93005; 93010; 99285